=== PATIENT | female | born 1960 | race Caucasian/White ===

== ENCOUNTER → 2019-07-22 12:50 | Outpatient (CLI) | payer BC, SELFPAY ==
--- NOTE | ~2019-07-22 | XR_ITS ---
EXAMINATION: XR chest 2V EXAM DATE: 07/22/2019 13:34 INDICATION: Cough for 5 days. TECHNIQUE: Frontal and lateral projections of the chest obtained and reviewed. Comparison is made to prior examination from 12/18/2018. FINDINGS: Mildly indistinct reticulation, possible mild pulmonary edema or reticulonodular airspace d isease without confluent consolidation. No pneumothorax or pleural effusion. Patient has diffuse idio pathic skeletal hyperostosis (DISH). Cardiomediastinal silhouette is normal. IMPRESSION: Some indistinct bibasilar reticulation could be mild pulmonary edema or reticulonodular pattern infectious process. No confluent consolidation. Reviewed, dictated and finalized at location B. 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 No confluent consolidation.
== END ==
PROVIDERS: PCP Internal Medicine; Visit Provider Nurse Practitioner
DX: R05 Cough (principal); R91.8 Other nonspecific abnormal finding of lung field
CPT/HCPCS: 71046

== ENCOUNTER → 2019-08-07 13:27 | Outpatient (CLI) | payer BC, SELFPAY ==
--- NOTE | ~2019-08-07 | XR_ITS ---
XR chest 2V DATE: 08/07/2019 13:39 INDICATION: Pneumonia TECHNIQUE: 2 views COMPARISON: 07/22/2021 view chest FINDINGS: Normal heart size. No hilar or mediastinal enlargement. No pulmonary infiltrate or consol idation, pulmonary vascular congestion or pleural effusion or pneumothorax. Diffuse osteopenia. Degenerative spurring of the thoracic spine. Old left humeral surgical neck fra cture deformity. IMPRESSION: No active cardiopulmonary disease Reviewed, dictated and finalized at location A.
== END ==
PROVIDERS: PCP Internal Medicine; Visit Provider Nurse Practitioner
DX: J18.9 Pneumonia, unspecified organism (principal)
CPT/HCPCS: 71046

== ENCOUNTER 2019-12-21 09:30 | Outpatient (RCR) | payer BC, SELFPAY ==
[2019-11-02 09:59] LABS: Hematocrit 28.1 % (37.0-47.0); Hemoglobin 9.1 g/dL (12.0-15.0); Immature Platelet Fraction Pct 6.6 % (0.9-11.2); Mean Corpuscular HGB Conc 32.4 g/dl (32-36); Mean Corpuscular Volume 77.2 fl (80-100); Platelet Count Result 123 k/mm3 (150-375); Red Blood Count 3.64 M/mm3 (4.2-5.4); Red Cell Distribution Width 21.2 % (11.5-14.5); White Blood Count 9.3 K/mm3 (4.5-10.0)
[2019-11-02 10:03] LABS: Alanine Aminotransferase 94 U/L (4-35); Albumin Level 3.4 g/dL (3.5-5.1); Alkaline Phosphatase 97 U/L (38-126); Aspartate Amino Transferase 33 U/L (14-36); Bilirubin,Total 0.9 mg/dL (0.2-1.3); Blood Urea Nitrogen 23 mg/dL (7-17); Calcium 8.3 mg/dL (8.4-10.2); Carbon Dioxide 24 mmol/L (22-30); Chloride 108 mmol/L (98-107); Estimated Glomerular Filt Rate 31; Glucose 216 mg/dL (65-105); Magnesium 1.8 mg/dL (1.6-2.3); Phosphorus 3.2 mg/dL (2.5-4.5); Potassium 4.1 mmol/L (3.4-5.0); Sodium 137 mmol/L (137-145)
[2019-11-04 20:35] LABS: Tacrolimus Prograf 6.1 mcg/L
[2019-11-05 05:02] LABS: GGT 98 U/L (3-65)
[2019-11-05 10:05] LABS: Hematocrit 37.1 % (37.0-47.0); Hemoglobin 11.9 g/dL (12.0-15.0); Mean Corpuscular HGB Conc 32.1 g/dl (32-36); Mean Corpuscular Hemoglobin 23.9 pg (26-34); Mean Corpuscular Volume 74.5 fl (80-100); Platelet Count Result 151 k/mm3 (150-375); Red Blood Count 4.98 M/mm3 (4.2-5.4)
[2019-11-05 10:13] LABS: Alanine Aminotransferase 71 U/L (4-35); Albumin Level 3.5 g/dL (3.5-5.1); Alkaline Phosphatase 111 U/L (38-126); Aspartate Amino Transferase 30 U/L (14-36); Bilirubin,Total 0.7 mg/dL (0.2-1.3); Blood Urea Nitrogen 25 mg/dL (7-17); Calcium 8.7 mg/dL (8.4-10.2); Carbon Dioxide 21 mmol/L (22-30); Chloride 105 mmol/L (98-107); Estimated Glomerular Filt Rate 38; Glucose 266 mg/dL (65-105); Magnesium 1.7 mg/dL (1.6-2.3); Phosphorus 3.3 mg/dL (2.5-4.5); Potassium 4.3 mmol/L (3.4-5.0); Sodium 135 mmol/L (137-145)
[2019-11-09 03:54] LABS: GGT 85 U/L (3-65)
[2019-11-09 13:34] LABS: Alanine Aminotransferase 44 U/L (4-35); Albumin Level 3.6 g/dL (3.5-5.1); Alkaline Phosphatase 109 U/L (38-126); Aspartate Amino Transferase 25 U/L (14-36); Bilirubin,Total 0.6 mg/dL (0.2-1.3); Blood Urea Nitrogen 33 mg/dL (7-17); Calcium 8.6 mg/dL (8.4-10.2); Carbon Dioxide 18 mmol/L (22-30); Chloride 107 mmol/L (98-107); Estimated Glomerular Filt Rate 31; Glucose 242 mg/dL (65-105); Magnesium 1.8 mg/dL (1.6-2.3); Phosphorus 3.5 mg/dL (2.5-4.5); Potassium 4.3 mmol/L (3.4-5.0); Sodium 136 mmol/L (137-145)
[2019-11-09 13:41] LABS: Hematocrit 29.6 % (37.0-47.0); Hemoglobin 9.3 g/dL (12.0-15.0); Immature Platelet Fraction Pct 4.3 % (0.9-11.2); Mean Corpuscular HGB Conc 31.4 g/dl (32-36); Mean Corpuscular Hemoglobin 23.7 pg (26-34); Mean Corpuscular Volume 75.5 fl (80-100); Mean Platelet Volume 11.9 fl (7.4-10.4); Platelet Count Result 192 k/mm3 (150-375); Red Blood Count 3.92 M/mm3 (4.2-5.4); Red Cell Distribution Width 19.8 % (11.5-14.5); White Blood Count 7.3 K/mm3 (4.5-10.0)
[2019-11-09 23:11] LABS: Tacrolimus Prograf 7.8 mcg/L
[2019-11-11 19:08] LABS: GGT 79 U/L (3-65)
[2019-11-12 10:29] LABS: Hematocrit 29.1 % (37.0-47.0); Hemoglobin 9.4 g/dL (12.0-15.0); Mean Corpuscular HGB Conc 32.3 g/dl (32-36); Mean Corpuscular Hemoglobin 23.6 pg (26-34); Mean Corpuscular Volume 72.9 fl (80-100); Mean Platelet Volume 11.5 fl (7.4-10.4); Platelet Count Result 210 k/mm3 (150-375); Red Blood Count 3.99 M/mm3 (4.2-5.4); White Blood Count 6.8 K/mm3 (4.5-10.0)
[2019-11-12 10:51] LABS: Alanine Aminotransferase 37 U/L (4-35); Albumin Level 3.7 g/dL (3.5-5.1); Alkaline Phosphatase 107 U/L (38-126); Aspartate Amino Transferase 25 U/L (14-36); Bilirubin,Total 0.5 mg/dL (0.2-1.3); Blood Urea Nitrogen 34 mg/dL (7-17); Calcium 8.9 mg/dL (8.4-10.2); Carbon Dioxide 19 mmol/L (22-30); Chloride 108 mmol/L (98-107); Estimated Glomerular Filt Rate 33; Glucose 233 mg/dL (65-105); Magnesium 1.7 mg/dL (1.6-2.3); Phosphorus 4.1 mg/dL (2.5-4.5); Potassium 4.8 mmol/L (3.4-5.0); Sodium 136 mmol/L (137-145)
[2019-11-14 22:56] LABS: Tacrolimus Prograf 11.5 mcg/L
[2019-11-15 05:52] LABS: GGT 65 U/L (3-65)
[2019-11-16 10:05] LABS: Hematocrit 30.7 % (37.0-47.0); Hemoglobin 9.8 g/dL (12.0-15.0); Mean Corpuscular HGB Conc 31.9 g/dl (32-36); Mean Corpuscular Hemoglobin 23.1 pg (26-34); Mean Corpuscular Volume 72.2 fl (80-100); Mean Platelet Volume 10.9 fl (7.4-10.4); Platelet Count Result 225 k/mm3 (150-375); Red Blood Count 4.25 M/mm3 (4.2-5.4); Red Cell Distribution Width 18.5 % (11.5-14.5); White Blood Count 7.8 K/mm3 (4.5-10.0)
[2019-11-16 10:28] LABS: Alanine Aminotransferase 31 U/L (4-35); Alkaline Phosphatase 121 U/L (38-126); Aspartate Amino Transferase 21 U/L (14-36); Bilirubin,Total 0.4 mg/dL (0.2-1.3); Blood Urea Nitrogen 41 mg/dL (7-17); Calcium 9.3 mg/dL (8.4-10.2); Carbon Dioxide 18 mmol/L (22-30); Chloride 106 mmol/L (98-107); Estimated Glomerular Filt Rate 27; Glucose 265 mg/dL (65-105); Magnesium 1.8 mg/dL (1.6-2.3); Phosphorus 4.2 mg/dL (2.5-4.5); Potassium 4.9 mmol/L (3.4-5.0); Sodium 136 mmol/L (137-145)
[2019-11-18 19:02] LABS: Tacrolimus Prograf 11.2 mcg/L
[2019-11-19 06:12] LABS: GGT 60 U/L (3-65)
[2019-11-19 10:56] LABS: Hemoglobin 10.3 g/dL (12.0-15.0); Mean Corpuscular HGB Conc 32.2 g/dl (32-36); Mean Corpuscular Hemoglobin 22.9 pg (26-34); Mean Corpuscular Volume 71.1 fl (80-100); Mean Platelet Volume 11.4 fl (7.4-10.4); Platelet Count Result 228 k/mm3 (150-375); White Blood Count 7.6 K/mm3 (4.5-10.0)
[2019-11-19 13:03] LABS: Alanine Aminotransferase 29 U/L (4-35); Albumin Level 4.1 g/dL (3.5-5.1); Alkaline Phosphatase 110 U/L (38-126); Aspartate Amino Transferase 21 U/L (14-36); Bilirubin,Total 0.4 mg/dL (0.2-1.3); Blood Urea Nitrogen 49 mg/dL (7-17); Calcium 9.3 mg/dL (8.4-10.2); Carbon Dioxide 19 mmol/L (22-30); Chloride 107 mmol/L (98-107); Estimated Glomerular Filt Rate 24; Glucose 214 mg/dL (65-105); Magnesium 1.8 mg/dL (1.6-2.3); Phosphorus 5.3 mg/dL (2.5-4.5); Potassium 4.5 mmol/L (3.4-5.0); Sodium 137 mmol/L (137-145)
[2019-11-22 12:58] LABS: GGT 55 U/L (3-65)
[2019-11-23 07:54] LABS: Tacrolimus Prograf 9.7 mcg/L
[2019-11-23 10:21] LABS: Hematocrit 29.6 % (37.0-47.0); Hemoglobin 9.4 g/dL (12.0-15.0); Mean Corpuscular HGB Conc 31.8 g/dl (32-36); Mean Corpuscular Hemoglobin 22.7 pg (26-34); Mean Corpuscular Volume 71.3 fl (80-100); Mean Platelet Volume 10.5 fl (7.4-10.4); Platelet Count Result 170 k/mm3 (150-375); Red Blood Count 4.15 M/mm3 (4.2-5.4); Red Cell Distribution Width 17.3 % (11.5-14.5); White Blood Count 6.7 K/mm3 (4.5-10.0)
[2019-11-23 10:42] LABS: Alanine Aminotransferase 23 U/L (4-35); Alkaline Phosphatase 103 U/L (38-126); Aspartate Amino Transferase 24 U/L (14-36); Bilirubin,Total 0.5 mg/dL (0.2-1.3); Blood Urea Nitrogen 30 mg/dL (7-17); Calcium 9.3 mg/dL (8.4-10.2); Carbon Dioxide 16 mmol/L (22-30); Chloride 110 mmol/L (98-107); Estimated Glomerular Filt Rate 38; Glucose 175 mg/dL (65-105); Magnesium 1.8 mg/dL (1.6-2.3); Phosphorus 4.5 mg/dL (2.5-4.5); Potassium 4.9 mmol/L (3.4-5.0); Sodium 134 mmol/L (137-145)
[2019-11-23 11:39] LABS: Hepatitis B Surface Antigen Negative (Negative)
[2019-11-23 11:56] LABS: HIV 1/2 Ab P24 Ag Result Negative (Negative); Hepatitis B Surface Anti Res Negative; Hepatitis C Virus Antibody Negative (Negative)
[2019-11-25 15:58] LABS: Tacrolimus Prograf 6.9 mcg/L
[2019-11-25 20:38] LABS: GGT 42 U/L (3-65)
[2019-11-26 10:28] LABS: Hematocrit 30.6 % (37.0-47.0); Hemoglobin 9.7 g/dL (12.0-15.0); Mean Corpuscular HGB Conc 31.7 g/dl (32-36); Mean Corpuscular Hemoglobin 22.7 pg (26-34); Mean Corpuscular Volume 71.5 fl (80-100); Mean Platelet Volume 11.3 fl (7.4-10.4); Platelet Count Result 174 k/mm3 (150-375); Red Blood Count 4.28 M/mm3 (4.2-5.4); Red Cell Distribution Width 17.2 % (11.5-14.5); White Blood Count 6.6 K/mm3 (4.5-10.0)
[2019-11-26 10:30] LABS: Alanine Aminotransferase 21 U/L (4-35); Alkaline Phosphatase 105 U/L (38-126); Aspartate Amino Transferase 18 U/L (14-36); Bilirubin,Total 0.4 mg/dL (0.2-1.3); Blood Urea Nitrogen 26 mg/dL (7-17); Calcium 9.3 mg/dL (8.4-10.2); Carbon Dioxide 16 mmol/L (22-30); Chloride 111 mmol/L (98-107); Estimated Glomerular Filt Rate 38; Glucose 193 mg/dL (65-105); Magnesium 1.9 mg/dL (1.6-2.3); Phosphorus 4.3 mg/dL (2.5-4.5); Potassium 5.1 mmol/L (3.4-5.0); Sodium 137 mmol/L (137-145)
[2019-11-30 05:16] LABS: GGT 38 U/L (3-65)
[2019-11-30 05:33] LABS: Tacrolimus Prograf 5.8 mcg/L
[2019-11-30 09:58] LABS: Hematocrit 28.1 % (37.0-47.0); Mean Corpuscular Hemoglobin 22.3 pg (26-34); Mean Corpuscular Volume 69.7 fl (80-100); Mean Platelet Volume 10.6 fl (7.4-10.4); Platelet Count Result 153 k/mm3 (150-375); Red Blood Count 4.03 M/mm3 (4.2-5.4); Red Cell Distribution Width 16.7 % (11.5-14.5); White Blood Count 6.4 K/mm3 (4.5-10.0)
[2019-11-30 10:10] LABS: Alanine Aminotransferase 25 U/L (4-35); Albumin Level 3.9 g/dL (3.5-5.1); Alkaline Phosphatase 105 U/L (38-126); Aspartate Amino Transferase 24 U/L (14-36); Bilirubin,Total 0.5 mg/dL (0.2-1.3); Blood Urea Nitrogen 21 mg/dL (7-17); Calcium 9.4 mg/dL (8.4-10.2); Carbon Dioxide 19 mmol/L (22-30); Chloride 108 mmol/L (98-107); Estimated Glomerular Filt Rate 42; Glucose 217 mg/dL (65-105); Magnesium 1.7 mg/dL (1.6-2.3); Phosphorus 4.4 mg/dL (2.5-4.5); Potassium 4.8 mmol/L (3.4-5.0); Sodium 135 mmol/L (137-145)
[2019-11-30 17:30] LABS: Hepatitis B DNA PCR <1.00 Log IU/mL; Hepatitis B DNA PCR <10 IU/mL
[2019-12-02 18:50] LABS: GGT 34 U/L (3-65)
[2019-12-03 09:30] LABS: Tacrolimus Prograf 5.2 mcg/L
[2019-12-03 10:48] LABS: Hematocrit 29.6 % (37.0-47.0); Mean Corpuscular HGB Conc 30.4 g/dl (32-36); Mean Corpuscular Hemoglobin 21.9 pg (26-34); Platelet Count Result 140 k/mm3 (150-375); Red Blood Count 4.11 M/mm3 (4.2-5.4); Red Cell Distribution Width 17.1 % (11.5-14.5); White Blood Count 5.2 K/mm3 (4.5-10.0)
[2019-12-03 11:18] LABS: Alanine Aminotransferase 26 U/L (4-35); Albumin Level 4.1 g/dL (3.5-5.1); Alkaline Phosphatase 98 U/L (38-126); Aspartate Amino Transferase 22 U/L (14-36); Bilirubin,Total 0.4 mg/dL (0.2-1.3); Blood Urea Nitrogen 23 mg/dL (7-17); Calcium 9.2 mg/dL (8.4-10.2); Carbon Dioxide 20 mmol/L (22-30); Chloride 107 mmol/L (98-107); Estimated Glomerular Filt Rate 35; Glucose 192 mg/dL (65-105); Magnesium 1.9 mg/dL (1.6-2.3); Phosphorus 4.6 mg/dL (2.5-4.5); Potassium 4.8 mmol/L (3.4-5.0); Sodium 137 mmol/L (137-145)
[2019-12-07 10:47] LABS: Hematocrit 28.1 % (37.0-47.0); Hemoglobin 8.8 g/dL (12.0-15.0); Mean Corpuscular HGB Conc 31.3 g/dl (32-36); Mean Corpuscular Hemoglobin 21.7 pg (26-34); Mean Corpuscular Volume 69.2 fl (80-100); Mean Platelet Volume 10.9 fl (7.4-10.4); Platelet Count Result 181 k/mm3 (150-375); Red Blood Count 4.06 M/mm3 (4.2-5.4); Red Cell Distribution Width 16.3 % (11.5-14.5); White Blood Count 5.2 K/mm3 (4.5-10.0)
[2019-12-07 10:54] LABS: Alanine Aminotransferase 33 U/L (4-35); Albumin Level 4.3 g/dL (3.5-5.1); Alkaline Phosphatase 102 U/L (38-126); Aspartate Amino Transferase 26 U/L (14-36); Bilirubin,Total 0.5 mg/dL (0.2-1.3); Blood Urea Nitrogen 22 mg/dL (7-17); Calcium 9.5 mg/dL (8.4-10.2); Carbon Dioxide 21 mmol/L (22-30); Chloride 109 mmol/L (98-107); Estimated Glomerular Filt Rate 31; Glucose 160 mg/dL (65-105); Magnesium 1.8 mg/dL (1.6-2.3); Phosphorus 4.5 mg/dL (2.5-4.5); Potassium 4.6 mmol/L (3.4-5.0); Sodium 138 mmol/L (137-145)
[2019-12-08 04:24] LABS: GGT 36 U/L (3-65)
[2019-12-08 10:10] LABS: Tacrolimus Prograf 5.9 mcg/L
[2019-12-10 09:55] LABS: Hematocrit 27.9 % (37.0-47.0); Hemoglobin 8.7 g/dL (12.0-15.0); Mean Corpuscular HGB Conc 31.2 g/dl (32-36); Mean Corpuscular Hemoglobin 21.6 pg (26-34); Mean Corpuscular Volume 69.4 fl (80-100); Mean Platelet Volume 10.9 fl (7.4-10.4); Platelet Count Result 158 k/mm3 (150-375); Red Blood Count 4.02 M/mm3 (4.2-5.4); White Blood Count 5.2 K/mm3 (4.5-10.0)
[2019-12-10 10:08] LABS: Alanine Aminotransferase 27 U/L (4-35); Albumin Level 4.2 g/dL (3.5-5.1); Alkaline Phosphatase 96 U/L (38-126); Aspartate Amino Transferase 25 U/L (14-36); Bilirubin,Total 0.4 mg/dL (0.2-1.3); Blood Urea Nitrogen 21 mg/dL (7-17); Calcium 9.5 mg/dL (8.4-10.2); Carbon Dioxide 23 mmol/L (22-30); Chloride 107 mmol/L (98-107); Estimated Glomerular Filt Rate 33; Glucose 174 mg/dL (65-105); Magnesium 1.8 mg/dL (1.6-2.3); Phosphorus 4.9 mg/dL (2.5-4.5); Potassium 4.7 mmol/L (3.4-5.0); Sodium 137 mmol/L (137-145)
[2019-12-10 16:37] LABS: Tacrolimus Prograf 6.8 mcg/L
[2019-12-11 19:59] LABS: GGT 33 U/L (3-65)
[2019-12-14 06:54] LABS: Tacrolimus Prograf 5.5 mcg/L
[2019-12-14 11:05] LABS: Hematocrit 27.5 % (37.0-47.0); Hemoglobin 8.6 g/dL (12.0-15.0); Mean Corpuscular HGB Conc 31.3 g/dl (32-36); Mean Corpuscular Hemoglobin 21.6 pg (26-34); Mean Corpuscular Volume 69.1 fl (80-100); Mean Platelet Volume 11.4 fl (7.4-10.4); Platelet Count Result 159 k/mm3 (150-375); Red Blood Count 3.98 M/mm3 (4.2-5.4); Red Cell Distribution Width 15.7 % (11.5-14.5); White Blood Count 5.2 K/mm3 (4.5-10.0)
[2019-12-14 11:11] LABS: Alanine Aminotransferase 23 U/L (4-35); Albumin Level 4.1 g/dL (3.5-5.1); Alkaline Phosphatase 87 U/L (38-126); Aspartate Amino Transferase 18 U/L (14-36); Bilirubin,Total 0.4 mg/dL (0.2-1.3); Blood Urea Nitrogen 21 mg/dL (7-17); Calcium 9.2 mg/dL (8.4-10.2); Carbon Dioxide 22 mmol/L (22-30); Chloride 106 mmol/L (98-107); Estimated Glomerular Filt Rate 33; Glucose 189 mg/dL (65-105); Magnesium 1.7 mg/dL (1.6-2.3); Phosphorus 4.3 mg/dL (2.5-4.5); Potassium 4.4 mmol/L (3.4-5.0); Sodium 139 mmol/L (137-145)
[2019-12-15 22:55] LABS: GGT 28 U/L (3-65)
[2019-12-17 10:30] LABS: Hematocrit 27.8 % (37.0-47.0); Hemoglobin 8.7 g/dL (12.0-15.0); Mean Corpuscular HGB Conc 31.3 g/dl (32-36); Mean Corpuscular Hemoglobin 21.2 pg (26-34); Mean Corpuscular Volume 67.6 fl (80-100); Mean Platelet Volume 11.1 fl (7.4-10.4); Platelet Count Result 158 k/mm3 (150-375); Red Blood Count 4.11 M/mm3 (4.2-5.4); Red Cell Distribution Width 15.3 % (11.5-14.5); White Blood Count 5.3 K/mm3 (4.5-10.0)
[2019-12-17 10:58] LABS: Alanine Aminotransferase 23 U/L (4-35); Albumin Level 4.1 g/dL (3.5-5.1); Alkaline Phosphatase 82 U/L (38-126); Anion Gap 14.3 mmol/L (7-16); Aspartate Amino Transferase 21 U/L (14-36); Bilirubin,Total 0.5 mg/dL (0.2-1.3); Blood Urea Nitrogen 21 mg/dL (7-17); Calcium 9.2 mg/dL (8.4-10.2); Carbon Dioxide 21 mmol/L (22-30); Chloride 108 mmol/L (98-107); Estimated Glomerular Filt Rate 38; Glucose 167 mg/dL (65-105); Magnesium 1.7 mg/dL (1.6-2.3); Phosphorus 4.7 mg/dL (2.5-4.5); Potassium 4.3 mmol/L (3.4-5.0); Sodium 139 mmol/L (137-145)
[2019-12-17 12:53] LABS: GGT 25 U/L (3-65)
[2019-12-17 18:20] LABS: Tacrolimus Prograf 5.3 mcg/L
[2019-12-20 10:11] LABS: Tacrolimus Prograf 4.9 mcg/L
[2019-12-21 10:48] LABS: Hematocrit 27.1 % (37.0-47.0); Hemoglobin 8.5 g/dL (12.0-15.0); Mean Corpuscular HGB Conc 31.4 g/dl (32-36); Mean Corpuscular Hemoglobin 21.5 pg (26-34); Mean Corpuscular Volume 68.4 fl (80-100); Platelet Count Result 154 k/mm3 (150-375); Red Blood Count 3.96 M/mm3 (4.2-5.4); Red Cell Distribution Width 15.2 % (11.5-14.5); White Blood Count 5.4 K/mm3 (4.5-10.0)
[2019-12-21 10:53] LABS: Alanine Aminotransferase 21 U/L (4-35); Alkaline Phosphatase 75 U/L (38-126); Anion Gap 12.6 mmol/L (7-16); Aspartate Amino Transferase 20 U/L (14-36); Bilirubin,Total 0.4 mg/dL (0.2-1.3); Blood Urea Nitrogen 18 mg/dL (7-17); Calcium 9.3 mg/dL (8.4-10.2); Carbon Dioxide 21 mmol/L (22-30); Chloride 109 mmol/L (98-107); Estimated Glomerular Filt Rate 35; Glucose 149 mg/dL (65-105); Magnesium 1.7 mg/dL (1.6-2.3); Phosphorus 5.3 mg/dL (2.5-4.5); Potassium 4.6 mmol/L (3.4-5.0); Sodium 138 mmol/L (137-145)
[2019-12-21 17:53] LABS: GGT 21 U/L (3-65)
[2019-12-24 15:46] LABS: Tacrolimus Prograf 6.2 mcg/L
[2019-12-25 05:10] LABS: GGT 18 U/L (3-65)
== END 2020-01-31 23:59 | disposition home or self-care (01) ==
LOC: HOME HLTH 09:30
PROVIDERS: PCP Internal Medicine; Visit Provider Internal Medicine
DX: Z48.01 Encounter for change or removal of surgical wound dressing (principal); Z94.4 Liver transplant status; Z11.4 Encounter for screening for human immunodeficiency virus [HIV]
CPT/HCPCS: 36415; 80048; 80053; 80197; 82977; 83735; 84100; 85027; 85055; 86703; 86706; 86803; 87340; 87517; G0432

== ENCOUNTER → 2020-01-15 09:12 | Outpatient (CLI) | payer BC, SELFPAY ==
--- NOTE | ~2020-01-15 | XR_ITS ---
EXAMINATION: XR chest 2V DATE: 01/15/2020 09:25 INDICATION: Shortness of breath and cough TECHNIQUE: Frontal and lateral views of the chest are obtained COMPARISON: 08/07/2019 FINDINGS: The lungs are free of acute opacities. There is no pleural effusion or pneumothorax. The ca rdiomediastinal silhouette is normal. There are bridging osteophytes at multiple levels in the spine, consistent with diffuse idiopathic skeletal hyperostosis (DISH). IMPRESSION: 1. No acute cardiopulmonary abnormality. Reviewed, dictated and finalized at location A.
== END ==
PROVIDERS: PCP Internal Medicine; Visit Provider Clinical Nurse Specialist
DX: R06.02 Shortness of breath (principal); R05 Cough
CPT/HCPCS: 71046

== ENCOUNTER 2020-04-30 19:02 | Emergency (ER) | payer BC, SELFPAY ==
--- NOTE | ~2020-04-30 | CT_ITS ---
EXAMINATION: CT brain wo con DATE: 04/30/2020 20:33 INDICATION: Severe headache. Blurred vision. TECHNIQUE: Computed tomography (CT) of the head was performed without intravenous contrast. Sagittal and coronal reconstructions were performed. The mA was adjusted according to patient size. Iterative reconstruction technique was employed. The dose-length product was 605.33 mGy-cm. COMPARISON: head CT dated 04/03/19 FINDINGS: No acute intracranial hemorrhage, acute infarction or abnormal extra axial fluid collection. Symmetri c prominence of the sulci and subarachnoid spaces overlying the convexities consistent with mild age- appropriate diffuse cerebral volume loss. Ventricles are normal and symmetric. No mass/mass effect. T he orbits, paranasal sinuses and mastoid air cells are normal. IMPRESSION: 1. Normal aging brain. No acute intracranial process. Reviewed, dictated and finalized at location A. 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
[2020-04-30 19:06] VITALS: BP 219/81; PULSE 76; RESP 16; TEMP 36.3; O2SAT 98
--- NOTE | 2020-04-30 19:51 | ED.RECABL ---
HPI - Recheck/Abnormal Lab/Rx General Chief Complaint: Recheck/Abnormal Lab/Rx Stated Complaint: Liver transplant, High blood pressue Time Seen by Provider: 04/30/20 19:40 History of Present Illness HPI narrative: 59 yo female w/ h/o liver transplant presents to the ED for headache and hypertension. She reports that she required a transfusion of 2 units of RBCs yesterday due to anemia. Following the transfusion she began having a severe left sided headache. This was associated with blurry vision in the left eye. Additionally she notes persistently elevated BP above 200 systolic. She reports that this is abnormal for her. She has also developed swelling in the BLE. Related Data Home Medications Medication Instructions Recorded Confirmed lutein 20 mg capsule 20 mg PO DAILY 04/08/19 omeprazole 40 mg capsule,delayed 40 mg PO DAILY 04/08/19 release cetirizine 10 mg capsule 10 mg PO DAILY 06/23/19 insulin aspart U-100 100 unit/mL 1 sliding scale dose SUB-Q 06/23/19 subcutaneous solution USEASDIRECTD aspirin 81 mg tablet,delayed 81 mg PO DAILY 01/14/20 release atorvastatin 40 mg tablet 40 mg PO DAILY 01/14/20 carvedilol 6.25 mg tablet 25 mg PO Q12H tablet 01/14/20 insulin glargine 100 unit/mL (3 10 unit SUB-Q DAILY 01/14/20 mL) subcutaneous pen mycophenolate sodium 360 mg 720 mg PO BID 01/14/20 tablet,delayed release pantoprazole 40 mg tablet,delayed 40 mg PO QAM 01/14/20 release sulfamethoxazole 800 1 tablet PO DAILY tablet 01/14/20 mg-trimethoprim 160 mg tablet tacrolimus 1 mg capsule 1 mg PO Q12H 01/14/20 valganciclovir 450 mg tablet 450 mg PO DAILY tablet 01/14/20 Allergies Allergy/AdvReac Type Severity Reaction Status Date / Time adhesive tape Allergy Mild rash Verified 04/30/20 19:10 clindamycin Allergy Unknown Rash Verified 04/30/20 19:10 Review of Systems Constitutional: Constitutional: Reports chills and Denies fever(s) Eyes: Eyes: Reports change in vision and Reports photophobia ENT: Denies sore throat Cardiovascular: Cardiovascular: Denies chest pain Gastrointestinal: Gastrointestinal: Reports bloating and Reports nausea Neurologic: Denies confusion and Reports headache(s) [facility] Past Medical History Medical History Abnormal uterine bleeding Allergies Anemia Broken arm Left humerus bone March 2019 Cirrhosis DM (diabetes mellitus) Encounter for blood transfusion 2019 Endometriosis Fracture of proximal end of left humerus (04/04/19) Gastritis GERD (gastroesophageal reflux disease) GI bleed Heart murmur History of pleurisy Hypertension Liver transplant planned October 24, 2019 Olecranon bursitis, left elbow Osteoporosis Pancreatitis Pneumonia UTI (urinary tract infection) Vertigo Surgical History Surgical History History of cholecystectomy Previous section x2 Family History Family History Mother Family history of malignant neoplasm of stomach Anemia Macular degeneration Father Bone tumor Liver cirrhosis Social History Social History Smoking status: Never smoker Alcohol intake: never Gender identity (if verbalized by the patient): Female Exam Const: General: no acute distress and alert Nutritional Appearance: obese Orientation/consciousness: patient oriented x3 HENMT: Head: normal to inspection Eyes: Conjunctivae: conjunctivae normal Pupils: Equal, round and reactive pupils present EOM: EOMs intact bilaterally Neck: Neck: normal visual inspection Resp: Effort & Inspection: normal respiratory effort Auscultation: clear to auscultation bilaterally Cardio: Rate: regular rate Rhythm: regular rhythm GI: Inspection: distended GI Palp: No Tenderness to palpation present (GI) Skin: General sk
[2020-04-30] MEDS: diphenhydrAMINE HCl INJ 50 MG/ML VIAL 25 MG IV PUSH (21:14)
[2020-04-30] MEDS: METOCLOPRAMIDE HCL INJ 10 MG/2 ML VIAL IV PUSH (21:15)
[2020-04-30 21:18] LABS: Basophils Percent Auto 0.2 % (0.2-1.2); Eosinophils Absolute Auto 0.1 K/mm3 (0-0.3); Eosinophils Percent Auto 1.3 % (0-4.4); Hematocrit 34.5 % (37.0-47.0); Hemoglobin 10.8 g/dL (12.0-15.0); Immature Granulocyte Absolute 0.04 K/mm3 (0.00-0.031); Immature Granulocyte Percent A 0.6 % (0-0.5); Immature Platelet Fraction Pct 6.5 % (0.9-11.2); Lymphocytes Absolute Auto 0.62 K/mm3 (0.9-3.2); Mean Corpuscular HGB Conc 31.3 g/dl (32-36); Mean Corpuscular Hemoglobin 20.7 pg (26-34); Mean Corpuscular Volume 66.1 fl (80-100); Monocytes Absolute Auto 0.3 K/mm3 (0.1-0.6); Monocytes Percent Auto 4.9 % (2.6-8.5); Neutrophils Absolute Auto 5.1 K/mm3 (1.3-6.7); Platelet Count Result 89 k/mm3 (150-375); Red Blood Count 5.22 M/mm3 (4.2-5.4); Red Cell Distribution Width 23.9 % (11.5-14.5); White Blood Count 6.2 K/mm3 (4.5-10.0)
[2020-04-30] MEDS: KETOROLAC 30 MG/ML VIAL (*BKC) IV PUSH (21:18)
[2020-04-30 21:27] LABS: Prothrombin Time 13.5 Seconds (11.1-14.7)
[2020-04-30 21:28] LABS: Alanine Aminotransferase 15 U/L (4-35); Albumin Level 3.8 g/dL (3.5-5.1); Alkaline Phosphatase 94 U/L (38-126); Anion Gap 6 mmol/L (8-16); Aspartate Amino Transferase 17 U/L (14-36); Bilirubin,Total 0.6 mg/dL (0.2-1.3); Blood Urea Nitrogen 26 mg/dL (7-17); Calcium 9.3 mg/dL (8.4-10.2); Carbon Dioxide 19 mmol/L (22-30); Chloride 115 mmol/L (98-107); Estimated CRCL calculation 28 ml/min; Estimated Glomerular Filt Rate 23; Glucose 184 mg/dL (65-105); Potassium 4.9 mmol/L (3.4-5.0); Sodium 140 mmol/L (137-145)
[2020-04-30 22:02] VITALS: BP 182/78
[2020-04-30] MEDS: FUROSEMIDE INJ 40 MG/4 ML VIAL IV PUSH (22:09)
[2020-04-30 23:13] VITALS: BP 182/92
[2020-05-01 00:15] VITALS: BP 184/88
[2020-05-01 00:29] VITALS: BP 184/88; PULSE 71; RESP 20; O2SAT 100
== END 2020-05-01 00:35 | disposition home or self-care (01) ==
PROVIDERS: Emergency Provider Emergency Medicine; PCP Internal Medicine
DX: R51.9 Headache, unspecified (principal); I10 Essential (primary) hypertension; R60.9 Edema, unspecified; Z94.4 Liver transplant status; Z79.82 Long term (current) use of aspirin; Z79.4 Long term (current) use of insulin; D64.9 Anemia, unspecified; E11.9 Type 2 diabetes mellitus without complications; N80.9 Endometriosis, unspecified; K21.9 Gastro-esophageal reflux disease without esophagitis; Z87.440 Personal history of urinary (tract) infections; M81.0 Age-related osteoporosis without current pathological fracture; K74.60 Unspecified cirrhosis of liver
CPT/HCPCS: 36415; 70450; 80053; 85025; 85055; 85610; 85730; 96374; 96375; 99284; J1200; J1885; J1940; J2765

== ENCOUNTER 2020-05-09 07:02 | Outpatient (NON) | payer BC, SELFPAY ==
[2020-05-09 18:34] LABS: SARS-CoV-2 RNA PCR Negative
== END 2020-05-09 07:03 ==
LOC: ANHCOVIDDT 07:03
DX: Z01.812 Encounter for preprocedural laboratory examination (principal); Z20.828 Contact with and (suspected) exposure to other viral communicable diseases
CPT/HCPCS: 87635; C9803; U0003

== ENCOUNTER → 2020-06-22 11:22 | Outpatient (CLI) | payer BC, SELFPAY ==
--- NOTE | ~2020-06-22 | CT_ITS ---
EXAMINATION: CT abdomen pelvis wo con DATE: 06/22/2020 12:14 INDICATION: Microscopic hematuria. History of liver transplant in September 2019 TECHNIQUE: Computed tomography (CT) of the abdomen and pelvis was performed without intravenous contr ast. Automated exposure control and iterative reconstruction technique were employed. Exam dose: 967 .81 mGy-cm total exam DLP. COMPARISON: None. FINDINGS: The lung bases are clear of infiltrate or consolidation. Normal heart size. Trace pericardial fluid. Status post liver transplant by clinical history. There is air in the intrahepatic and extrahepatic b ile ducts. No pancreatic mass lesion or calcification. The spleen measures up to 12.5 cm length, 14 c m being upper limits of normal. Normal morphology of the adrenal glands. No renal mass lesion is evident on this limited noncontrast examination. No urinary tract calculus or hydroureteronephrosis. There is mild to moderate thickening of the urinary bladder wall. The urinary bladder, uterus and adn exal areas are otherwise unremarkable. Normal caliber of the abdominal aorta. No intraperitoneal or retroperitoneal or pelvic mass lesion or adenopathy or ascites. No bowel obstruction, bowel wall thickening, pneumatosis or intraperitoneal free air. Small fat-containing umbilical hernia. Diffuse idiopathic skeletal hyperostosis of the thoracic spine. No suspicious osteolytic or osteoblastic lesions are noted. IMPRESSION: History of liver transplant Borderline splenic size Nonspecific mild to moderate thickening of the urinary bladder wall Reviewed, dictated and finalized at Location A. Reviewed, dictated and finalized at location A. RECLAIMER
--- NOTE | ~2020-06-22 | XR_ITS ---
XR abdomen/kub 1V DATE: 06/22/2020 12:13 INDICATION: Microscopic hematuria TECHNIQUE: AP projection, 2 views COMPARISON: 06/22/[address] abdomen pelvis FINDINGS: Surgical clips overlie the right upper quadrant, consistent with history of liver transplan t. Radiopaque metallic density overlying the medial left midabdomen is noted in the gastric lumen on the 06/22/2020 CT abdomen pelvis examination. The psoas shadows are intact. Splenomegaly. No visceromegaly is evident otherwise. No urinary tract calcifications are noted. Nonspecific bowel gas pattern without evidence of obstruction. IMPRESSION: Status post liver transplant Splenomegaly Nonspecific abdomen Reviewed, dictated and finalized at Location A. Reviewed, dictated and finalized at location A. 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
[2020-06-22 11:46] LABS: Estimated Glomerular Filt Rate 16
== END ==
PROVIDERS: PCP Internal Medicine; Visit Provider Urology
DX: R31.29 Other microscopic hematuria (principal); R16.1 Splenomegaly, not elsewhere classified; Z94.4 Liver transplant status
CPT/HCPCS: 74018; 74176

== ENCOUNTER 2020-08-01 16:50 | Outpatient (CLI) | payer BC, SELFPAY | END 2020-08-01 16:51 | disposition home or self-care (01) | LOC: ANHCOVIDVC 16:50 | PROVIDERS: PCP Internal Medicine | DX: Z23 Encounter for immunization (principal) | CPT/HCPCS: 0001A; 91300 ==

== ENCOUNTER 2020-08-22 16:47 | Outpatient (CLI) | payer BC, SELFPAY | END 2020-08-22 16:48 | disposition home or self-care (01) | LOC: ANHCOVIDVC 16:47 | PROVIDERS: PCP Internal Medicine | DX: Z23 Encounter for immunization (principal) | CPT/HCPCS: 0002A; 91300 ==

== ENCOUNTER 2020-10-25 12:31 | Emergency (ER) | payer BC, SELFPAY ==
--- NOTE | ~2020-10-25 | XR_ITS ---
EXAMINATION: XR chest 2V EXAM DATE: 10/25/2020 13:59 INDICATION: Congestion non smoker hx liver transplant. TECHNIQUE: Frontal and lateral projections of the chest obtained and reviewed. Comparison is made to prior examination from 01/15/2020. FINDINGS: The lungs are clear. There are no pleural effusions. The cardiomediastinal silhouette is within normal limits. There is no pneumothorax suspected. Patient has diffuse idiopathic skeletal h yperostosis (DISH). There is no significant interval change. IMPRESSION: No acute cardiopulmonary findings. Reviewed, dictated and finalized at location B.
[2020-10-25 12:42] VITALS: BP 155/73; PULSE 97; RESP 16; TEMP 36.8; O2SAT 99
--- NOTE | 2020-10-25 14:32 | ED.URI ---
HPI - URI/Sore Throat General Chief Complaint: Upper Respiratory Infection Stated Complaint: sinus infection Time Seen by Provider: 10/25/20 14:01 Source: patient and RN notes reviewed Mode of arrival: ambulatory Limitations: no limitations History of Present Illness HPI Narrative: Patient presents today with a 1 month history of nasal congestion, sore throat, watery eyes, ear pressure. 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 She took care of her grandchild last week, who has since developed pneumonia. Patient developed a productive cough 5 days ago and is now intermittently short of breath. She has been taking Zyrtec, Flonase, Mucinex with mild relief. She is IDDM and is a liver transplant recipient. Related Data Home Medications Medication Instructions Recorded Confirmed insulin aspart U-100 100 unit/mL 1 sliding scale dose SUB-Q 06/23/19 10/25/20 subcutaneous solution USEASDIRECTD aspirin 81 mg tablet,delayed 81 mg PO DAILY 01/14/20 10/25/20 release mycophenolate sodium 360 mg 360 mg PO BID 01/14/20 10/25/20 tablet,delayed release amlodipine 10 mg tablet 10 mg PO DAILY 06/17/20 10/25/20 prednisone 20 mg tablet 5 mg PO DAILY tablet 09/12/20 10/25/20 tacrolimus 1 mg capsule, 1 mg PO Q12H 09/12/20 10/25/20 immediate-release insulin glargine [Basaglar KwikPen 12 - 16 unit SUBCUT BID 10/25/20 10/25/20 U-100 Insulin] Allergies Allergy/AdvReac Type Severity Reaction Status Date / Time adhesive tape Allergy Mild rash Verified 10/25/20 13:48 clindamycin Allergy Unknown Rash Verified 10/25/20 13:48 Sulfa (Sulfonamide AdvReac Mild Hives Verified 10/25/20 13:48 Antibiotics) Review of Systems Review of Systems: Narrative: CONSTITUTIONAL: Denies body aches, fever, chills, or sweats. EYES: Denies visual changes, redness, or discharge.+ Watery eyes ENT: Congestion, sore throat, ear pressure CARDIOVASCULAR: Denies chest pain, palpitations, or edema. RESPIRATORY: + Cough, shortness of breath, chest tightness GASTROINTESTINAL: Denies abdominal pain, nausea, vomiting, or diarrhea. GENITOURINARY: Denies dysuria or hematuria. SKIN: Denies rash, itching, or wounds. MUSCULOSKELETAL: Denies back pain, joint pain, or myalgia. NEUROLOGIC: Denies headache, numbness, tingling, or weakness. PSYCH: Denies depression or anxiety. [facility] Past Medical History Medical History Abnormal uterine bleeding Allergies Anemia Broken arm Left humerus bone March 2019 Cirrhosis CMV (cytomegalovirus infection) DM (diabetes mellitus) Encounter for blood transfusion 2018 Endometriosis Fracture of proximal end of left humerus (04/04/19) Gastritis GERD (gastroesophageal reflux disease) GI bleed Heart murmur History of pleurisy Hypertension Liver transplant planned October 24, 2019 Olecranon bursitis, left elbow Osteoporosis Pancreatitis Pneumonia UTI (urinary tract infection) Vertigo Surgical History Surgical History History of cholecystectomy Previous section x2 Family History Family History Mother Family history of malignant neoplasm of stomach Anemia Macular degeneration Father Bone tumor Liver cirrhosis Social History Social History Smoking status: Never smoker Alcohol intake: never Gender identity (if verbalized by the patient): Female Comments At time of signature, I have reviewed and agree with nursing past medical, surgical, social and family history unless otherwise noted. Please see nursing chart for further information. There is no relevant family history pertinent to the presenting complaint Exam Narrative: Exam Narrative: GENERAL: Mildly ill-appearing, well-
== END 2020-10-25 14:38 | disposition home or self-care (01) ==
PROVIDERS: Emergency Provider Nurse Practitioner; PCP Internal Medicine
DX: J32.9 Chronic sinusitis, unspecified (principal); K74.60 Unspecified cirrhosis of liver; E11.9 Type 2 diabetes mellitus without complications; N80.9 Endometriosis, unspecified; K21.9 Gastro-esophageal reflux disease without esophagitis; R01.1 Cardiac murmur, unspecified; I10 Essential (primary) hypertension; Z94.4 Liver transplant status; M81.0 Age-related osteoporosis without current pathological fracture
CPT/HCPCS: 71046; 99213; G0463

== ENCOUNTER → 2021-06-10 10:13 | Outpatient (CLI) | payer BC, SELFPAY ==
--- NOTE | ~2021-06-10 | XR_ITS ---
EXAMINATION: XR chest 2V 06/10/2021 11:03 INDICATION: Fever. Liver transplant status. PROCEDURE: 2 view chest COMPARISON: Comparison to multiple prior studies sequentially, with oldest reviewed study dated 07/22. FINDINGS: The lungs are clear. The cardiomediastinal silhouette is within normal limits. There are no pleural effusions. There is no pneumothorax suspected. IMPRESSION: 1: NO ACUTE CARDIOPULMONARY DISEASE. Reviewed, dictated and finalized at location A. 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
== END ==
PROVIDERS: PCP Internal Medicine; Visit Provider Internal Medicine Gastroenterology
DX: R50.9 Fever, unspecified (principal); Z94.4 Liver transplant status
CPT/HCPCS: 71046

== ENCOUNTER 2021-10-26 13:27 | Outpatient (CLI) | payer BC, SELFPAY ==
--- NOTE | ~2021-10-26 | US_ITS ---
EXAMINATION: US abdomen limited DATE: 10/26/2021 14:18 INDICATION: Epigastric abdominal pain TECHNIQUE: Multiple grayscale and Doppler ultrasound images of the abdomen were obtained. COMPARISON: CT, 06/22/2020 FINDINGS: The head and body of the pancreas are normal. The pancreatic tail is obscured by bowel gas. The liver is normal with normal echogenicity and echotexture. No surface nodularity. Normal hepatope michael flow in the main portal vein. The gallbladder is surgically absent. The normal common bile duct m easures 6 mm. IMPRESSION: 1. No sonographic correlate for the patient's symptoms. Reviewed, dictated and finalized at location F.
== END 2021-10-26 13:28 | disposition home or self-care (01) ==
PROVIDERS: PCP Internal Medicine; Visit Provider Nurse Practitioner
DX: R10.11 Right upper quadrant pain (principal); R10.12 Left upper quadrant pain
CPT/HCPCS: 76705

== ENCOUNTER 2021-10-27 10:39 | Outpatient (CLI) | payer BC, SELFPAY ==
--- NOTE | ~2021-10-27 | CT_ITS ---
EXAMINATION: CT abdomen pelvis wo con DATE: 10/27/2021 11:11 INDICATION: Unspecified abdomen pain. History of liver transplant. TECHNIQUE: Computed tomography (CT) of the abdomen and pelvis was performed without intravenous contr ast. The dose-length product was 1048.39 mGy-cm. Automated exposure control and iterative reconstruct ion technique were employed. COMPARISON: CT dated 06/22/2020. FINDINGS: There is pneumobilia. There are cholecystectomy changes. No focal hepatic masses are identi fied on noncontrast examination. There is splenomegaly. The pancreas, adrenal glands and kidneys are unremarkable. No renal/ureteral stones or hydronephrosis. Bladder wall is thickened with perivesical fatty infiltration, suspicious for cystitis. There is subcutaneous edema of the anterior abdominal wa ll. There is atherosclerosis without aneurysm. No lymphadenopathy. Small amount of free fluid in the pelvis. Uterus is present. There are probable uterine fibroids. Nonobstructive bowel gas pattern. Sma ll fat-containing umbilical hernia. Small pleural effusions. Small pericardial effusion. There is dependent atelectasis. Mild lumbar spon dylosis. IMPRESSION: 1. Bladder wall thickening with perivesical fatty infiltration, suspicious for cystitis. Correlate cl inically. 2: Splenomegaly. Reviewed, dictated and finalized at location A. IMPRESSION: 1. Bladder wall thickening with perivesical fatty infiltration, suspicious for cystitis. Correlate clinically. 2: Splenomegaly.
== END 2021-10-27 10:40 | disposition home or self-care (01) ==
PROVIDERS: PCP Internal Medicine; Visit Provider Nurse Practitioner
DX: R10.9 Unspecified abdominal pain (principal); R93.41 Abnormal radiologic findings on diagnostic imaging of renal pelvis, ureter, or bladder; R16.1 Splenomegaly, not elsewhere classified
CPT/HCPCS: 74176

== ENCOUNTER 2021-11-07 13:56 | Outpatient (CLI) | payer BC, SELFPAY ==
[2021-11-07 14:27] LABS: Appearance Urine Clear (Clear); Bilirubin Urine Negative (Negative); Color Urine Yellow (Yellow); Glucose Urine UA Trace mg/dL (Negative); Ketones Urine Negative (Negative); Leukocyte Esterase Ur Negative LEU/UL (Negative); Nitrate Urine Negative (Negative); Protein Urine 3+ mg/dL (Negative); Urobilinogen Urine 0.2 mg/dL (<2.0)
[2021-11-07 14:33] LABS: Alanine Aminotransferase 18 U/L (6-35); Albumin Level 3.5 g/dL (3.5-5.1); Alkaline Phosphatase 65 U/L (38-126); Anion Gap 8 mmol/L (8-16); Aspartate Amino Transferase 16 U/L (14-36); Bilirubin,Total 0.5 mg/dL (0.2-1.3); Blood Urea Nitrogen 34 mg/dL (7-17); Calcium 7.7 mg/dL (8.4-10.2); Carbon Dioxide 14 mmol/L (22-30); Chloride 115 mmol/L (98-107); Estimated Glomerular Filt Rate 12; Glucose 193 mg/dL (65-110); Sodium 137 mmol/L (137-145)
[2021-11-07 14:34] LABS: Bacteria Urine Trace /hpf; Basophils Percent Auto 0.5 % (0.2-1.2); Eosinophils Absolute Auto 0.2 K/mm3 (0-0.3); Eosinophils Percent Auto 2.8 % (0-4.4); Hematocrit 24.4 % (37.0-47.0); Hemoglobin 7.3 g/dL (12.0-15.0); Immature Granulocyte Absolute 0.03 K/mm3 (0.00-0.031); Immature Granulocyte Percent A 0.5 % (0-0.5); Immature Platelet Fraction Pct 7.5 % (0.9-11.2); Lymphocytes Absolute Auto 2.21 K/mm3 (0.9-3.2); Lymphocytes Percent Auto 36.8 % (18.3-44.2); Mean Corpuscular HGB Conc 29.9 g/dl (32-36); Mean Corpuscular Hemoglobin 19.1 pg (26-34); Mean Corpuscular Volume 63.9 fl (80-100); Monocytes Absolute Auto 0.4 K/mm3 (0.1-0.6); Monocytes Percent Auto 6.8 % (2.6-8.5); Mucus Urine Rare /lpf; Neutrophils Absolute Auto 3.2 K/mm3 (1.3-6.7); Neutrophils Percent Auto 52.6 % (45.5-73.1); Platelet Count Result 151 k/mm3 (150-375); Red Blood Count 3.82 M/mm3 (4.2-5.4); Red Cell Distribution Width 18.7 % (11.5-14.5); Squamous Epithelial Cell Urine Many /hpf (Few)
[2021-11-07 15:26] LABS: Add Urine Microscopic? YES; Blood Urine Trace-Intact (Negative)
[2021-11-07 15:30] LABS: Microalbumin Urine Random > 1140.0 mg/L (0-16.7)
[2021-11-07 21:12] LABS: Platelet Estimate Adequate (Adequate)
[2021-11-07 21:13] LABS: Anisocytosis 2+ (NORMAL); Hypochromasia 1+ (NORMAL)
== END 2021-11-07 13:57 | disposition home or self-care (01) ==
LOC: ANHLAB 13:58
PROVIDERS: PCP Internal Medicine; Visit Provider Nurse Practitioner
DX: K74.60 Unspecified cirrhosis of liver (principal); N39.0 Urinary tract infection, site not specified; R10.9 Unspecified abdominal pain
CPT/HCPCS: 36415; 80053; 81001; 82043; 85025; 85055

== ENCOUNTER 2022-04-06 07:07 | Outpatient (RCR) | payer MEDICARE, OTHER, SELFPAY ==
[2022-04-05 11:13] LABS: Hematocrit 21.1 % (37.0-47.0); Immature Platelet Fraction Pct 10.1 % (0.9-11.2); Mean Corpuscular HGB Conc 29.9 g/dl (32-36); Mean Corpuscular Hemoglobin 20.9 pg (26-34); Mean Corpuscular Volume 69.9 fl (80-100); Platelet Count Result 152 k/mm3 (150-375); Red Blood Count 3.02 M/mm3 (4.2-5.4); Red Cell Distribution Width 20.6 % (11.5-14.5); White Blood Count 5.2 K/mm3 (4.5-10.0)
[2022-04-05 11:23] LABS: Hemoglobin 6.3 g/dL (12.0-15.0)
[2022-04-06] VITALS (12 sets, daily range): BP systolic 137–173; BP diastolic 43–70; PULSE 66–76; RESP 16–20; TEMP 36.6–37.1; O2SAT 100
[2022-04-06] MEDS: ACETAMINOPHEN 500 MG TABLET PO (08:10)
[2022-04-06] MEDS: diphenhydrAMINE HCl CAP 25 MG CAPSULE 50 MG PO (08:12)
[2022-04-06] MEDS: SODIUM CHLORIDE 0.9% IV 250 ML 30 ML IV CONT (08:14)
[2022-04-06] MEDS: FUROSEMIDE INJ 40 MG/4 ML VIAL IV PUSH ×2 (11:47→15:33)
== END 2022-07-04 23:59 | disposition home or self-care (01) ==
LOC: ANHCPCTRAN 07:07
PROVIDERS: PCP Internal Medicine; Visit Provider Internal Medicine Nephrology
DX: N18.9 Chronic kidney disease, unspecified (principal); D63.1 Anemia in chronic kidney disease
CPT/HCPCS: 36415; 36430; 85027; 85055; 86850; 86900; 86901; 86920; 96374; A9270; J1940; J7050; P9016

== ENCOUNTER 2022-11-28 09:46 | Outpatient (CLI) | payer MEDICARE, OTHER, SELFPAY ==
--- NOTE | ~2022-11-28 | DEXA_ITS ---
Bone Density Report Name: DILSHAD GOVEA Age: 62 Sex: Female Ethnicity: White Date of : 1960 Indication: postmenopausal; screening for osteoporosis; parental hip fracture; height loss; end stage renal disease; Referring Provider: John, Yola Galarza Study: Bone densitometry was performed. Exam Date: November 28, 2022 Accession number: [id number] Bone Density: Region BMD T-score Z-score Classification AP Spine(L2, L3, L4) 0.722 -3.2 -1.5 Osteoporosis Femoral Neck (Left) 0.503 -3.1 -1.6 Osteoporosis Total Hip (Left) 0.639 -2.5 -1.3 Osteoporosis Femoral Neck (Right) 0.492 -3.2 -1.7 Osteoporosis Total Hip (Right) 0.604 -2.8 -1.6 Osteoporosis Femoral Neck Mean 0.497 -3.2 -1.7 Osteoporosis Total Hip Mean 0.621 -2.6 -1.4 Osteoporosis World Health Organization criteria for BMD impression classify patients as: Normal (T-score at or above -1.0), Osteopenia (T-score between -1.0 and -2.5), or Osteoporosis (T-score at or below -2.5). 10-year Fracture Risk: FRAX not reported because: Some T-score for Spine Total or Hip Total or Femoral Neck at or below -2.5 Clinical Information Provided by Patient: Parent has had a hip fracture Has used the following medications: Evista (i.e. raloxifene), Vitamin D, Calcium Has the following medical conditions: End stage renal disease Patient maximum height was 65 Menopause Age: 56 No regular weight bearing exercise Does not regularly consume dairy products Drinks caffeinated beverages Onset of menses at age 12 Number of children 3 Impression: The patient has osteoporosis, based on the Total Spine T-score. The patient has risk factors, including: parental hip fracture. Discussion: INCREASED RISK OF FRACTURE. BONE DENSITY IS UNDESIRABLY LOW AT ONE OR MORE SKELETAL SITES, CONSISTENT WITH POSTMENOPAUSAL OSTEOPOROSIS. This patient's lowest T-score meets the World Health Organization's (WHO) criteria for osteoporosis at one or more sites (T-score -2.5 or below). In untreated patients, the risk of osteoporotic fracture increases approximately two-fold for each 1.0 SD decrease in T-score. Low bone density is not the only risk factor for fracture; also consider factors such as patient's age, frailty or poor health, risk of falling, risk of injury, previous osteoporotic fracture, family history of osteoporosis, cigarette smoking, low body weight, etc. Not everyone with low bone mineral density has osteoporosis; osteomalacia and other metabolic bone disorders should also be considered. Patients who have osteoporosis should be evaluated for specific diseases and conditions (secondary causes) that may cause or contribute to bone loss. The [place] [employer] Endocrinologists (AACE) and National Osteoporosis Foundation (NOF) recommend pharmacologic inte
--- NOTE | ~2022-11-28 | MM_ITS ---
EXAMINATION: MM screening [facility] BI w abhijit HISTORY: Screening mammogram TECHNIQUE: Craniocaudal and mediolateral oblique 3-D tomosynthesis images were obtained and synthetic 2-D images were generated. CAD analysis was submitted and interpreted. COMPARISON: 02/27/2019, 09/23/2017, 02/01/2016 BREAST PARENCHYMAL COMPOSITION: There are scattered areas of fibroglandular density. FINDINGS: No suspicious mass, calcification, or architectural distortion are identified in either chelita ast to suggest malignancy. There has been no suspicious interval change. IMPRESSION: 1. No mammographic evidence of malignancy. 2. Recommend routine screening mammography in one year. BI-RADS Category 1: Negative Reviewed, dictated and finalized at location A.
== END 2022-11-28 09:47 | disposition home or self-care (01) ==
PROVIDERS: PCP Internal Medicine; Visit Provider Nurse Practitioner Obstetrics & Gynecology
DX: Z12.31 Encounter for screening mammogram for malignant neoplasm of breast (principal); Z78.0 Asymptomatic menopausal state; M81.0 Age-related osteoporosis without current pathological fracture
CPT/HCPCS: 77063; 77067; 77080

== ENCOUNTER 2023-04-03 14:57 | Outpatient (CLI) | payer MEDICARE, OTHER, SELFPAY | END 2023-04-03 14:58 | disposition home or self-care (01) | LOC: ANHAUDIO 14:58 | PROVIDERS: PCP Internal Medicine; Visit Provider Otolaryngology | DX: H90.A21 Sensorineural hearing loss, unilateral, right ear, with restricted hearing on the contralateral side (principal); H90.A32 Mixed conductive and sensorineural hearing loss, unilateral, left ear with restricted hearing on the contralateral side | CPT/HCPCS: 92557; 92567 ==

== ENCOUNTER 2023-05-22 07:56 | Outpatient (CLI) | payer MEDICARE, OTHER, SELFPAY ==
--- NOTE | ~2023-05-22 | MR_ITS ---
EXAMINATION: MR IAC wo/w con DATE: 05/22/2023 09:24 INDICATION: Unspecified hearing loss, bilateral. TECHNIQUE: Magnetic resonance imaging (MRI) of the brain, brainstem, and internal auditory canals was performed without and with 17 mL MultiHance intravenous contrast. COMPARISON: Head CT 04/30/2020 FINDINGS: There are scattered areas of nonspecific increased T2-weighted signal intensity in the cere bral white matter. There is no intracranial hemorrhage, acute infarction, or abnormal intracranial ma ss lesion. The ventricles are normal in size. There is mucosal thickening in the paranasal sinuses. T he orbits are normal. The internal auditory canals and inner ears are normal. There is a right mastoi d effusion. There is a left otomastoid effusion. IMPRESSION: 1. Moderate nonspecific cerebral white matter disease, which likely represents chronic small vessel i schemic disease. 2. Right mastoid effusion. 3. Left otomastoid effusion. Reviewed, dictated and finalized at location E. 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 Moderate nonspecific cerebral white matter disease, which likely represents chronic small vessel ischemic disease. 2. Right mastoid effusion. 3. Left otomastoid effusion.
== END 2023-05-22 07:57 | disposition home or self-care (01) ==
PROVIDERS: PCP Internal Medicine; Visit Provider Otolaryngology
DX: H91.93 Unspecified hearing loss, bilateral (principal); R90.82 White matter disease, unspecified
CPT/HCPCS: 70553; A9577

== ENCOUNTER 2023-05-30 16:38 | Inpatient (IN) | payer MEDICARE, OTHER, SELFPAY ==
[2023-05-30] VITALS (9 sets, daily range): BP systolic 128–168; BP diastolic 41–82; PULSE 90–105; RESP 16–37; TEMP 36.5–38.8; O2SAT 93–97; BMI 31.4
--- NOTE | ~2023-05-30 | CT_ITS ---
EXAMINATION: CT abdomen pelvis wo con DATE: 05/30/2023 19:11 INDICATION: Sepsis. Nausea and vomiting. TECHNIQUE: Computed tomography (CT) of the abdomen and pelvis was performed without intravenous contr ast. Automated exposure control and iterative reconstruction technique were employed. The dose-length product was 1122.20 mGy-cm. COMPARISON: CT abdomen and pelvis 10/27/21 FINDINGS: The visualized portions of the lung bases demonstrate mild atelectasis. There is a small ri ght pleural effusion. The heart size is normal. No pericardial effusion. There is a central venous ca theter tip at superior cavoatrial junction. There are surgical clips around the inferior vena cava fr om liver transplant. There is mild splenomegaly. There are changes of cholecystectomy. The pancreas, adrenal glands, and right kidney are normal. There is hyperdense material in left kidney. There is a 4.9 x 4.2 cm mass of left kidney. There are no dilated loops of bowel. There are no dilated loops of bowel. The appendix is not visualized. Aortic atherosclerosis is noted. There are no pathologically e nlarged lymph nodes. There is trace pelvic ascites. There is mild lumbar spondylosis. IMPRESSION: 1. Small right pleural effusion. 2. 4.9 cm mass of left kidney, which may be a hematoma. Correlate with clinical history. Hyperdense m aterial in left kidney may be embolization material. Reviewed, dictated and finalized at location E. ECTION ENGINEER IMPRESSION: 1. Small right pleural effusion. 2. 4.9 cm mass of left kidney, which may be a hematoma. Correlate with clinical history. Hyperdense material in left kidney may be embolization material.
--- NOTE | ~2023-05-30 | XR_ITS ---
XR chest 1V portable DATE: 05/30/2023 17:17 INDICATION: Cough, shortness of breath TECHNIQUE: 05/30/2023 portable AP chest at 1715 hours COMPARISON: 06/10/2021 2 view chest FINDINGS: Right central venous catheter tip overlying right atrium. There is cardiomegaly, pulmonary vascular congestion and redistribution. There is patchy consolidati on of the mid to upper right lung, which may be due to pulmonary edema versus pneumonia. There is prominence of the minor fissure and there are bilateral Zhao B lines consistent with pulmo nary interstitial edema. No pleural effusion or pneumothorax. IMPRESSION: Cardiomegaly, congestive heart failure Patchy consolidation, right mid to upper lung; differential diagnosis includes pulmonary edema, pneum onia Right dialysis catheter tip overlying right atrium Reviewed, dictated and finalized at location L. ATTENDANT IMPRESSION: Cardiomegaly, congestive heart failure Patchy consolidation, right mid to upper lung; differential diagnosis includes pulmonary edema, pneumonia Right dialysis catheter tip overlying right atrium
--- NOTE | 2023-05-30 16:44 | ECG_ITS ---
Measurements Intervals [place] Rate: 103 P: 33 MD: 136 QRS: -7 QRSD: 81 T: 51 QT: 321 QTc: 422 Interpretive Statements SINUS TACHYCARDIA ATRIAL PREMATURE COMPLEX DELAYED PRECORDIAL R/S TRANSITION LEFT VENTRICULAR HYPERTROPHY WITH ST-T CHANGE BORDERLINE ECG COMPARED TO ECG 12/18/2018 09:53:04 SINUS TACHYCARDIA NOW PRESENT LEFT VENTRICULAR HYPERTROPHY NOW PRESENT Electronically Signed On 05-30-2023 18:08:05 CHASER HELPER by Mario Garcia D.O.
[2023-05-30 16:57] LABS: Glucose Point of Care 220 mg/dl (65-105)
[2023-05-30 17:01] LABS: Basophils Percent Auto 0.3 % (0.2-1.2); Eosinophils Absolute Auto 0.2 K/mm3 (0-0.3); Eosinophils Percent Auto 1.4 % (0-4.4); Hematocrit 28.7 % (37.0-47.0); Hemoglobin 8.5 g/dL (12.0-15.0); Immature Granulocyte Absolute 0.46 K/mm3 (0.00-0.031); Immature Granulocyte Percent A 2.9 % (0-0.5); Immature Platelet Fraction Pct 9.9 % (0.9-11.2); Lymphocytes Absolute Auto 0.91 K/mm3 (0.9-3.2); Lymphocytes Percent Auto 5.8 % (18.3-44.2); Mean Corpuscular HGB Conc 29.6 g/dl (32-36); Mean Corpuscular Hemoglobin 18.8 pg (26-34); Mean Corpuscular Volume 63.5 fl (80-100); Monocytes Absolute Auto 1.2 K/mm3 (0.1-0.6); Monocytes Percent Auto 7.9 % (2.6-8.5); Neutrophils Absolute Auto 12.9 K/mm3 (1.3-6.7); Neutrophils Percent Auto 81.7 % (45.5-73.1); Platelet Count Result 96 k/mm3 (150-375); Red Blood Count 4.52 M/mm3 (4.2-5.4); Red Cell Distribution Width 18.5 % (11.5-14.5); White Blood Count 15.7 K/mm3 (4.5-10.0)
[2023-05-30 17:10] LABS: Alanine Aminotransferase 18 U/L (6-35); Albumin Level 3.9 g/dL (3.5-5.1); Alkaline Phosphatase 68 U/L (38-126); Anion Gap 12 mmol/L (8-16); Aspartate Amino Transferase 21 U/L (14-36); Bilirubin,Total 1.1 mg/dL (0.2-1.3); Blood Urea Nitrogen 41 mg/dL (7-17); Calcium 7.9 mg/dL (8.4-10.2); Carbon Dioxide 24 mmol/L (22-30); Chloride 97 mmol/L (98-107); Estimated CRCL calculation 11 ml/min; Estimated Glomerular Filt Rate 8; Glucose 227 mg/dL (65-110); Potassium 3.8 mmol/L (3.4-5.0); Sodium 133 mmol/L (137-145)
--- NOTE | 2023-05-30 17:15 | ED.GENADULT ---
HPI - General Adult General Chief complaint: Weakness <DELIA Curiel Last Filed: 05/31/23 02:53> Stated complaint: WEAKNESS <DELIA Curiel Last Filed: 05/31/23 02:53> Time Seen by Provider: 05/30/23 16:49 <DELIA Curiel Last Filed: 05/31/23 02:53> Source: patient and family <DELIA Curiel Last Filed: 05/31/23 02:53> Mode of arrival: EMS <DELIA Curiel Filed: 05/31/23 02:53> Limitations: no limitations <DELIA Curiel Last Filed: 05/31/23 02:53> History of Present Illness HPI narrative: Patient is a 62 y/o female who presents to the ED via EMS with report of weakness, N/V. Patient has Hx of insulin dependent DM, ESRD on peritoneal dialysis, sees Dr. Francisco, hx of liver transplant 2020 r/t fatty liver disease. patient reports she performed her peritoneal dialysis last night and states she often feels ill afterwards, has frequent issues with dehydration. She states she has not felt well all day today and c/o nausea and vomiting. She has had productive cough with yellow sputum over the last few days. She also reports fevers and chills today, weakness, mild SOB, diarrhea. Denies rectal bleeding or melena. at bedside reports patient has been very lethargic, sleeping frequently, falling asleep mid sentence today. reports patient had yearly transplant follow-up in the last 1 month which was normal. They did adjust her Tacrolimus at that time. <DELIA Curiel Last Filed: 05/31/23 02:53> Related Data Home medications: Home Medications Medication Instructions Recorded Confirmed tacrolimus 1 mg capsule, 1 mg PO QAM 10/02/21 05/30/23 immediate-release blood-glucose sensor (Dexcom G6 10/05/21 05/30/23 Sensor device) blood-glucose transmitter (Dexcom 10/05/21 05/30/23 G6 Transmitter device) insulin lispro 100 unit/mL 1 sliding scale dose subcut 10/05/21 05/30/23 subcutaneous pen USEASDIRECTD pen needle, diabetic 32 gauge x 10/05/21 05/30/23 (Pen Needle) calcium acetate(phosphat bind) 667 667 mg PO TID 10/03/22 05/30/23 mg capsule insulin glargine 100 unit/mL (3 See Rx Instructions subcut DAILY 10/03/22 05/30/23 mL) subcutaneous pen (Basaglar KwikPen U-100 Insulin) irbesartan 150 mg tablet 300 mg PO QNOON 02/28/23 05/30/23 carvedilol 12.5 mg tablet 12.5 mg PO BID 05/30/23 05/30/23 sertraline 25 mg tablet 25 mg PO DAILY 05/30/23 05/30/23 tacrolimus 1 mg capsule, 2 mg PO HS 05/30/23 05/30/23 immediate-release mycophenolate sodium 360 mg 360 mg PO Q12H 05/31/23 05/31/23 tablet,delayed release (Myfortic) <DELIA Curiel Last Filed: 05/31/23 02:53> Allergies/adverse reactions: Allergies Allergy/AdvReac Type Severity Reaction Status Date / Time Sulfa (Sulfonamide Allergy Intermediate Rash Verified 02/28/23 11:02 Antibiotics) adhesive tape Allergy Mild rash Verified 02/28/23 11:02 amlodipine Allergy Unknown Unknown Verified 02/28/23 11:02 clindamycin Allergy Unknown Rash Verified 02/28/23 11:02 <DELIA Curiel Last Filed: 05/31/23 02:53> Review of Systems Review of Systems: CONSTITUTIONAL: See HPI CARDIOVASCULAR: Denies chest pain, palpitations, or edema. RESPIRATORY: See HPI GASTROINTESTINAL: See HPI GENITOURINARY: Denies dysuria or hematuria. NEUROLOGIC: See HPI <DELIA Curiel Last Filed: 05/31/23 02:53> All systems reviewed & are unremarkable except as noted in HPI and below <DELIA Curiel Last Filed: 05/31/23 02:53> [facility] Past Medical History Medical History: Medical History Abnormal uterine bleeding Allergies Anemia Broken arm Left humerus bone March 2019 Cirrhosis CMV (cytomegalovirus infection) Depression with anxiety DM (diabetes mellitus) Encounter for blood mosquera
[2023-05-30 17:16] LABS: Platelet Estimate Decreased (Adequate)
[2023-05-30 17:17] LABS: Anisocytosis 1+ (NORMAL); Hypochromasia 2+ (NORMAL); Schistocytes None Seen (NORMAL); Tear Drop Cells 1+ (NORMAL)
[2023-05-30 17:21] LABS: Lactic Acid Reflex 2.8 mmol/L (0.7-2.0)
[2023-05-30] MEDS: ONDANSETRON INJ 4 MG/2 ML VIAL IV PUSH (17:35)
[2023-05-30] MEDS: KETOROLAC 15 MG/ML VIAL (*BKC) IV PUSH (17:35)
[2023-05-30] MEDS: SODIUM CHLORIDE 0.9% IV 1,000 ML 999 ML IV CONT (17:36)
[2023-05-30 17:44] LABS: Influenza A QL RT-PCR Negative (Negative); Influenza B QL RT-PCR Negative (Negative); RSV RNA, RT-PCR Negative (Negative); SARS-CoV-2 RNA PCR Negative (Negative)
[2023-05-30 17:47] LABS: Lipase 29 U/L (23-300); Magnesium 1.3 mg/dL (1.6-2.3)
[2023-05-30 17:52] LABS: INR 1.2
[2023-05-30 17:53] LABS: Partial Thromboplastin Time 43.9 SECONDS (22.3-36.8)
[2023-05-30 18:00] LABS: NT Pro B Type Natriuretic Pept > 30000 pg/mL (19.9-100); Troponin I 0.029 ng/mL (0.000-0.034)
[2023-05-30] MEDS: CEFEPIME 2 GM/NS 50 ML 2 GM/50 ML BAG IVPB (18:55)
[2023-05-30 19:35] LABS: MRSA (PCR) NOT DETECTED (NOT DETECTE)
[2023-05-30] MEDS: VANCOMYCIN 1,750 MG/NS 500 ML 1,750 MG/500 ML BAG 250 MG IVPB (19:40)
[2023-05-30] MEDS: MAGNESIUM SULF 2 GM/WATER 50ML 2 GM/50 ML BAG IVPB (19:40)
--- NOTE | 2023-05-30 20:00 | ECG_ITS ---
Measurements Intervals [place] Rate: 91 P: 39 FL: 147 QRS: -3 QRSD: 73 T: 62 QT: 357 QTc: 440 Interpretive Statements SINUS RHYTHM LEFT VENTRICULAR HYPERTROPHY WITH ST-T CHANGE BORDERLINE ECG COMPARED TO ECG 05/30/2023 16:50:46 SINUS RHYTHM NOW PRESENT Electronically Signed On 05-31-2023 6:34:19 [employer] PSYCHOLOGIST by Mario Garcia D.O.
--- NOTE | 2023-05-30 20:04 | PM.IMHP ---
H&P: HPI History of Present Illness Date/Time: 05/30/23 20:04 Chief Complaint: Weakness Narrative: This is a 62-year-old female with past medical history significant for end-stage renal disease on hemodialysis, hypertension, insulin-dependent diabetes mellitus, liver transplant on chronic immunosuppressive therapy. Patient presents to the emergency room due to nausea, vomiting, for 2 days, generalized weakness, poor per orally intake, poor appetite. patient dialyzes 4 times a week. Preliminary workup was significant for chest x-ray with patchy infiltrates of the lungs. Patient tested negative for influenza type A influenza type B RSV and COVID-19 XR chest 1V portable DATE: 05/30/2023 17:17 INDICATION: Cough, shortness of breath? TECHNIQUE: 05/30/2023 portable AP chest at 1715 hours? COMPARISON: 06/10/2021 2 view chest? FINDINGS: Right central venous catheter tip overlying right atrium.? There is cardiomegaly, pulmonary vascular congestion and redistribution.? There is patchy consolidation of the mid to upper right lung, which may be due to pulmonary edema versus pneumonia. There is prominence of the minor fissure and there are bilateral Zhao B lines consistent with pulmonary interstitial edema. No pleural effusion or pneumothorax. IMPRESSION: Cardiomegaly, congestive heart failure Patchy consolidation, right mid to upper lung; differential diagnosis includes pulmonary edema, pneumonia Right dialysis catheter tip overlying right atrium? EXAMINATION: CT abdomen pelvis wo con DATE: 05/30/2023 19:11 INDICATION: Sepsis. Nausea and vomiting. TECHNIQUE: Computed tomography (CT) of the abdomen and pelvis was performed without intravenous contrast. Automated exposure control and iterative reconstruction technique were employed. The dose-length product was 1122.20 mGy-cm. COMPARISON: CT abdomen and pelvis 10/27/21 FINDINGS: The visualized portions of the lung bases demonstrate mild atelectasis. There is a small right pleural effusion. The heart size is normal. No pericardial effusion. There is a central venous catheter tip at superior cavoatrial junction. There are surgical clips around the inferior vena cava from liver transplant. There is mild splenomegaly. There are changes of cholecystectomy. The pancreas, adrenal glands, and right kidney are normal. There is hyperdense material in left kidney. There is a 4.9 x 4.2 cm mass of left kidney. There are no dilated loops of bowel. There are no dilated loops of bowel. The appendix is not visualized. Aortic atherosclerosis is noted. There are no pathologically enlarged lymph nodes. There is trace pelvic ascites. There is mild lumbar spondylosis. IMPRESSION: 1. Small right pleural effusion. 2. 4.9 cm mass of left kidney, which may be a hematoma. Correlate with clinical history. Hyperdense material in left kidney may be embolization material. Review of Systems Review of Systems: Generalized weakness, generalized malaise, nausea, vomiting, poor appetite, poor per orally intake. Constitutional: Constitutional: Reports malaise, Reports poor appetite and Reports weakness Eyes: Eyes: Denies change in vision ENT: Denies dysphagia and Denies odynophagia Cardiovascular: Cardiovascular: Denies chest pain, Denies radiating jaw, neck or arm pain and Denies palpitations Respiratory: Respiratory: Denies chest congestion, Denies cough and Denies dyspnea Gastrointestinal: Gastrointestinal: Reports nausea and Reports vomiting Genitourinary: Genitourinary: Denies dysuria Integumentary/Breasts: Skin/Breast: Reports rash Neurologic: Reports focal weakness and Reports Sensory deficit (Neuro) Psychiatric: Psychiatric: Reports no additional psychiatric complaints and Reports as per HPI Endocrine: Endocrine: Denies cold intolerance, Denies flushing, Denies heat intolerance, Denies polyphagia, Denies polydipsia and Denies palpitations Hematologic/Lymphatic: Hematologic/Lymphatic: Reports
[2023-05-30 20:05] LABS: Reflex Lactic Acid Yes or No Add Lactic
[2023-05-30 21:05] LABS: Lactic Acid 1.1 mmol/L (0.7-2.0)
[2023-05-30 21:20] LABS: Troponin I 0.039 ng/mL (0.000-0.034)
--- NOTE | 2023-05-30 22:56 | ADMGEN ---
This patient, Chante Goldsmith, was admitted to IMU Room 204-01 at 2140. Patient/family oriented to hospital policies and general routines including ID bracelet, bed and alarms, visiting hours, pain management, procedures, bathroom and other care routines, personal items, smoking policy, room service/diet, and visiting hours. Information on how to activate the Rapid Response Team has been discussed. Patient/Family are encouraged to report perceived risks to care and to ask questions if they do not understand what they are told or what they should do.
[2023-05-30 23:31] LABS: Troponin I 0.038 ng/mL (0.000-0.034)
[2023-05-31] VITALS (29 sets, daily range): BP systolic 109–152; BP diastolic 38–64; PULSE 75–91; RESP 16–20; TEMP 35.9–37.2; O2SAT 94–98
[2023-05-31 04:39] LABS: Estimated CRCL calculation 10 ml/min; Estimated Glomerular Filt Rate 7
[2023-05-31 06:42] LABS: Basophils Percent Auto 0.3 % (0.2-1.2); Hematocrit 25.8 % (37.0-47.0); Hemoglobin 7.6 g/dL (12.0-15.0); Immature Granulocyte Absolute 0.23 K/mm3 (0.00-0.031); Immature Granulocyte Percent A 1.5 % (0-0.5); Immature Platelet Fraction Pct 14.2 % (0.9-11.2); Lymphocytes Absolute Auto 1.62 K/mm3 (0.9-3.2); Lymphocytes Percent Auto 10.9 % (18.3-44.2); Mean Corpuscular HGB Conc 29.5 g/dl (32-36); Mean Corpuscular Hemoglobin 18.9 pg (26-34); Mean Corpuscular Volume 64.2 fl (80-100); Monocytes Absolute Auto 1.2 K/mm3 (0.1-0.6); Monocytes Percent Auto 8.3 % (2.6-8.5); Neutrophils Absolute Auto 11.8 K/mm3 (1.3-6.7); Platelet Count Result 89 k/mm3 (150-375); Red Blood Count 4.02 M/mm3 (4.2-5.4); Red Cell Distribution Width 18.4 % (11.5-14.5); White Blood Count 14.9 K/mm3 (4.5-10.0)
[2023-05-31 06:48] LABS: Albumin Level 3.5 g/dL (3.5-5.1)
[2023-05-31 06:52] LABS: Alanine Aminotransferase 12 U/L (6-35); Alkaline Phosphatase 74 U/L (38-126); Anion Gap 14 mmol/L (8-16); Aspartate Amino Transferase 17 U/L (14-36); Bilirubin,Total 0.9 mg/dL (0.2-1.3); Blood Urea Nitrogen 47 mg/dL (7-17); Calcium 8.1 mg/dL (8.4-10.2); Carbon Dioxide 23 mmol/L (22-30); Chloride 99 mmol/L (98-107); Estimated CRCL calculation 9 ml/min; Estimated Glomerular Filt Rate 7; Glucose 200 mg/dL (65-110); Potassium 4.2 mmol/L (3.4-5.0); Sodium 136 mmol/L (137-145)
[2023-05-31 07:32] LABS: Platelet Estimate Decreased (Adequate); Schistocytes 1+ (NORMAL); Target Cells 1+ (NORMAL); Tear Drop Cells 2+ (NORMAL)
[2023-05-31 07:33] LABS: Hypochromasia 3+ (NORMAL); Ovalocytes 2+ (NORMAL)
[2023-05-31 07:34] LABS: Hepatitis B Surface Antigen Negative (Negative)
[2023-05-31 07:51] LABS: Hepatitis B Surface Anti Res Negative
[2023-05-31 08:26] LABS: Glucose Point of Care 170 mg/dl (65-105)
[2023-05-31] MEDS: INSULIN GLARGINE (*BKC) 100 UNITS/ML 12 UNITS SUB-Q (09:06)
[2023-05-31] MEDS: carvediloL 12.5 MG TABLET PO ×2 (09:07→21:02)
[2023-05-31] MEDS: SERTRALINE HCL 25 MG TABLET PO (09:07)
[2023-05-31] MEDS: TACROLIMUS 0.5 MG CAPSULE 1 MG PO (09:07)
[2023-05-31] MEDS: FLUTICASONE PROPIONATE 0.05% NA SPR 16 GM BTL (*BKC) 1 SPRAY NASAL ×2 (09:07→21:01)
[2023-05-31] MEDS: CALCIUM ACETATE 667 MG TABLET PO ×3 (09:07→18:43)
[2023-05-31] MEDS: guaiFENesin 12 HR 600 MG TABCR PO ×2 (11:36→23:56)
[2023-05-31] MEDS: IRBESARTAN 150 MG TABLET 300 MG PO (11:36)
[2023-05-31 11:56] LABS: Glucose Point of Care 181 mg/dl (65-105)
[2023-05-31 14:10] LABS: Appearance Urine Cloudy (Clear); Bacteria Urine None Seen /hpf; Bilirubin Urine Negative (Negative); Blood Urine 1+ (Negative); Color Urine Yellow (Yellow); Glucose Urine UA Negative (Negative); Ketones Urine Trace mg/dL (Negative); Leukocyte Esterase Ur 1+ LEU/UL (Negative); Need Manual Microscopic Reviewed; Nitrate Urine Negative (Negative); Protein Urine 3+ mg/dL (Negative); Specific Grav Ur 1.016 (1.001-1.035); Squamous Epithelial Cell Urine Few /hpf (Few); Urobilinogen Urine 0.2 mg/dL (<2.0); WBC Urine 51-100 /hpf
[2023-05-31 14:13] LABS: Add Urine Microscopic? YES
--- NOTE | 2023-05-31 16:00 | PM.CNNEP ---
Assessment and Plan Assessment and plan (1) End stage renal disease: Code(s): N18.6 - End stage renal disease Status: Chronic Assessment and Plan: HD today follow electrolytes, volume status, and clearance likely HD tomorrow to ensure she get her 4 treatments/week normally does home hemodialysis (2) Pneumonia: Qualifiers: Laterality: right Lung location: middle lobe of lung Pneumonia type: due to unspecified organism Qualified Code(s): J18.9 - Pneumonia, unspecified organism Code(s): J18.9 - Pneumonia, unspecified organism Status: Acute Assessment and Plan: as suggested by admission imaging follow culture data on antibiotic therapy follow respiratroy status (3) Volume overload: Code(s): E87.70 - Fluid overload, unspecified Status: Acute Assessment and Plan: also noted by admission imaging fluid removal with dialysis to compensate (4) Liver transplant recipient: Code(s): Z94.4 - Liver transplant status Status: Chronic Assessment and Plan: continue home immunosuppressant therapy I will continue to follow the patient with you while she remains hospitalized to make further recommendations as needed. Thank you for allowing me to participate in the care of this patient. History of Present Illness Reason for Consult Consult date: 05/31/23 Reason for consult: end stage renal disease Chief Complaint Chief complaint: Sepsis,Lactic Acidosis,PNA,Hypomag,ESRD on Nancy Di History of Present Illness Narrative: The patient is a 62-year-old female with a past medical history as outlined below who presented to [facility] Emergency room with complaints nausea, vomiting, and not feeling well. She reports the symptoms over the course of this stay in association with a productive cough with yellow sputum over the last few days. She reports subjective fevers and chills but denies any chest pain. She does endorse generalized fatigue, mild shortness of breath and some issues with diarrhea. Her reported in the emergency room that he feels that she has also been a bit lethargic as well As he has noticed that there are times where she falls asleep when conversing in mid sentence. Given these constellation of symptoms, she came to the ER for further assessment. Workup and evaluation in the emergency room demonstrated the patient to be hemodynamically stable if not hypertensive but she was noted to be tachycardic, tachypneic, and febrile. Her oxygen saturations were stable on room air but she seemed to be somewhat somnolent on arrival to the emergency room. Routine blood test demonstrated elevated white blood cell count of 15.7 with a neutrophil predominance but no bandemia in association with chronic anemia. Her chemistry showed labs consistent with her known history of end-stage renal disease. Her lactic acid was mildly elevated and her chest x-ray was consistent with CHF/volume overload with findings of pulmonary edema and possible pneumonia BNP was urine 30,000. subsequent imaging including a CT scan of her abdomen pelvis was unrevealing but given her immunocompromised state, broad-spectrum IV antibiotic therapy was initiated after appropriate blood cultures were obtained. Her viral swabs for Covid, RSV, and influenza were negative. She was subsequently admitted to the hospital for further evaluation and therapy. Renal consultation was requested due to her end-stage renal disease. The patient normally does home hemodialysis four days a week under the care of Dr. Javad Francisco through [facility]. From a dialysis perspective, she has been doing reasonably well and is compliant with her treatments. She usually does her home hemodialysis treatments on Mondays, Tuesdays, , and Fridays. She did not do her dialysis treatment yesterday evening due to her presentation to the ER for her above complaint
--- NOTE | 2023-05-31 16:10 | P.PNIM_ITS ---
Progress Note: A&P Assessment and Plan (1) Sepsis: Qualifiers: Sepsis acute organ dysfunction status: unspecified Sepsis type: sepsis due to unspecified organism Qualified Code(s): A41.9 - Sepsis, unspecified o rganism Code(s): A41.9 - Sepsis, unspecified organism Status: Acute Assessment and Plan: * likely source to be pneumonia * continue cefepime, vanc d/c as MRSA negative * BC pending * supportive care * continue to monitor (2) Pneumonia: Qualifiers: Laterality: right Lung location: middle lobe of lung Pneumonia type: due to unspecified organism Qualified Code(s): J18.9 - Pneumonia, unspecified organism Code(s): J18.9 - Pneumonia, unspecified organism Status: Acute Assessment and Plan: * CXR showed Cardiomegaly, congestive heart failure. Patchy consolidation, right mid to upper lung; differential diagnosis includes pulmonary edema, pneumonia. Right dialysis catheter tip overlying right atrium * continue cefepime, vancomycin d/c as MRSA negative * respiratory panel negative (3) Lactic acidosis: Code(s): E87.20 - Acidosis, unspecified Status: Resolved Assessment and Plan: * repeat 1.1 * continue to monitor (4) CKD (chronic kidney disease) requiring chronic dialysis: Code(s): N18.6 - End stage renal disease; Z99.2 - Dependence on renal dialysis Status: Chronic Assessment and Plan: * creatinine 6.10, eGFR 7 this am * continue dialysis - on T/W/F/S schedule this week * nephrology consulted - hope to go to dialysis today (5) Liver transplant recipient: Code(s): Z94.4 - Liver transplant status Status: Chronic Assessment and Plan: * continue tacrolimus Subjective Date/time seen: 05/31/23 16:10 Interval history: Patient is in no acute distress this morning on exam, but continues to report she feels general malaise. 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 Will hopefully keep her on schedule with dialysis today. BC pending, continue cefepime. MRSA negative, Vanc d/c. Denies abdominal pain or vomiting this am. VS stable. Will continue to monitor her response to AB therapy. Review of Systems Review of Systems: All systems reviewed & are unremarkable except as noted in HPI and below Exam Const: General: no acute distress HENMT: Mouth: Yes moist mucous membranes Eyes: Pupils: Equal, round and reactive pupils present EOM: EOMs intact bilaterally Neck: Neck: supple Resp: Effort & Inspection: normal respiratory effort Auscultation: clear to auscultation bilaterally Cardio: Rate: regular rate Rhythm: regular rhythm Skin: General skin exam: normal color and no rashes or lesions noted W ounds: no wounds Other: left upper arm fistula Neuro: Speech: normal speech Sensory Exam: normal sensation Extrem: General: normal to inspection Psych: Mental Status: mental status grossly normal Affect: normal affect Objective Data Vital Signs Vital Signs: Vital Signs - 24 hr 05/30/23 16:39 05/30/23 16:52 05/30/23 19:47 Temperature 102 F H Pulse Rate 103 H 105 H 93 Respiratory Rate 37 H Blood Pressure 161/57 H Pulse Oximetry 97 Oxygen Delivery Room Air 05/30/23 19
--- NOTE | 2023-05-31 16:10 | PM.IMPN ---
Progress Note: A&P Assessment and Plan (1) Sepsis: Qualifiers: Sepsis acute organ dysfunction status: unspecified Sepsis type: sepsis due to unspecified organism Qualified Code(s): A41.9 - Sepsis, unspecified organism Code(s): A41.9 - Sepsis, unspecified organism Status: Acute Assessment and Plan: likely source to be pneumonia continue cefepime, vanc d/c as MRSA negative BC pending supportive care continue to monitor (2) Pneumonia: Qualifiers: Laterality: right Lung location: middle lobe of lung Pneumonia type: due to unspecified organism Qualified Code(s): J18.9 - Pneumonia, unspecified organism Code(s): J18.9 - Pneumonia, unspecified organism Status: Acute Assessment and Plan: CXR showed Cardiomegaly, congestive heart failure. Patchy consolidation, right mid to upper lung; differential diagnosis includes pulmonary edema, pneumonia. Right dialysis catheter tip overlying right atrium continue cefepime, vancomycin d/c as MRSA negative respiratory panel negative (3) Lactic acidosis: Code(s): E87.20 - Acidosis, unspecified Status: Resolved Assessment and Plan: repeat 1.1 continue to monitor (4) CKD (chronic kidney disease) requiring chronic dialysis: Code(s): N18.6 - End stage renal disease; Z99.2 - Dependence on renal dialysis Status: Chronic Assessment and Plan: creatinine 6.10, eGFR 7 this am continue dialysis - on T/W/F/S schedule this week nephrology consulted - hope to go to dialysis today (5) Liver transplant recipient: Code(s): Z94.4 - Liver transplant status Status: Chronic Assessment and Plan: continue tacrolimus Subjective Date/time seen: 05/31/23 16:10 Interval history: Patient is in no acute distress this morning on exam, but continues to report she feels general malaise. 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 Will hopefully keep her on schedule with dialysis today. BC pending, continue cefepime. MRSA negative, Vanc d/c. Denies abdominal pain or vomiting this am. VS stable. Will continue to monitor her response to AB therapy. Review of Systems Review of Systems: All systems reviewed & are unremarkable except as noted in HPI and below Exam Const: General: no acute distress HENMT: Mouth: Yes moist mucous membranes Eyes: Pupils: Equal, round and reactive pupils present EOM: EOMs intact bilaterally Neck: Neck: supple Resp: Effort & Inspection: normal respiratory effort Auscultation: clear to auscultation bilaterally Cardio: Rate: regular rate Rhythm: regular rhythm Skin: General skin exam: normal color and no rashes or lesions noted Wounds: no wounds Other: left upper arm fistula Neuro: Speech: normal speech Sensory Exam: normal sensation Extrem: General: normal to inspection Psych: Mental Status: mental status grossly normal Affect: normal affect Objective Data Vital Signs Vital Signs: Vital Signs - 24 hr 05/30/23 16:39 05/30/23 16:52 05/30/23 19:47 Temperature 102 F H Pulse Rate 103 H 105 H 93 Respiratory Rate 37 H Blood Pressure 161/57 H Pulse Oximetry 97 Oxygen Delivery Room Air 05/30/23 19:48 05/30/23 21:00 05/30/23 21:26 Temperature 99.4 F Pulse Rate 91 90 90 Respiratory Rate 26 H 27 H 25 H Blood Pressure 145/45 H 151/41 H 168/82 H Pulse Oximetry 96 93 94 Oxygen Delivery 05/30/23 21:55 05/30/23 22:00 05/30/23 22:00 Temperature 98.3 F Pulse Rate 96 93 Respiratory Rate 18 Blood Pressure 128/56 L Pulse Oximetry 97 Oxygen Delivery Room Air 05/30/23 23:53 05/31/23 00:00 05/31/23 00:00 Temperature 97.7 F Pulse Rate 93 91 Respiratory Rate 16 Blood Pressure 139/46 L Pulse Oximetry 96 Oxygen Delivery Room Air 05/31/23 03:49 05/31/23 04:00 05/31/23 04:00 Temperature 96.9 F L Pulse Rate
[2023-05-31] MEDS: EPOETIN ALFA-EPBX 10,000 UNITS/ML VIAL 10000 UNITS IV PUSH (17:37)
[2023-05-31 18:39] LABS: Glucose Point of Care 129 mg/dl (65-105)
[2023-05-31] MEDS: CEFEPIME 1 GM/NS 50 ML 1 GM/50 ML BAG IVPB (18:43)
[2023-05-31 20:47] LABS: Glucose Point of Care 163 mg/dl (65-105)
[2023-05-31] MEDS: INSULIN GLARGINE (*BKC) 100 UNITS/ML 10 UNITS SUB-Q (21:01)
[2023-05-31] MEDS: TACROLIMUS 0.5 MG CAPSULE 2 MG PO (21:06)
[2023-06-01] VITALS (21 sets, daily range): BP systolic 150–176; BP diastolic 47–75; PULSE 74–87; RESP 14–20; TEMP 36–37; O2SAT 97–100
[2023-06-01 05:26] LABS: Basophils Percent Auto 0.2 % (0.2-1.2); Eosinophils Absolute Auto 0.1 K/mm3 (0-0.3); Eosinophils Percent Auto 1.1 % (0-4.4); Hematocrit 24.5 % (37.0-47.0); Hemoglobin 7.1 g/dL (12.0-15.0); Immature Granulocyte Absolute 0.06 K/mm3 (0.00-0.031); Immature Granulocyte Percent A 0.7 % (0-0.5); Immature Platelet Fraction Pct 14.9 % (0.9-11.2); Lymphocytes Absolute Auto 1.58 K/mm3 (0.9-3.2); Lymphocytes Percent Auto 18.7 % (18.3-44.2); Mean Corpuscular Hemoglobin 18.6 pg (26-34); Mean Corpuscular Volume 64.1 fl (80-100); Monocytes Absolute Auto 0.5 K/mm3 (0.1-0.6); Monocytes Percent Auto 5.7 % (2.6-8.5); Neutrophils Absolute Auto 6.2 K/mm3 (1.3-6.7); Neutrophils Percent Auto 73.6 % (45.5-73.1); Platelet Count Result 110 k/mm3 (150-375); Red Blood Count 3.82 M/mm3 (4.2-5.4); Red Cell Distribution Width 17.8 % (11.5-14.5); White Blood Count 8.5 K/mm3 (4.5-10.0)
[2023-06-01 05:30] LABS: Lactic Acid Reflex 0.8 mmol/L (0.7-2.0)
[2023-06-01 05:32] LABS: Albumin Level 3.2 g/dL (3.5-5.1); Anion Gap 10 mmol/L (8-16); Blood Urea Nitrogen 28 mg/dL (7-17); Calcium 8.2 mg/dL (8.4-10.2); Carbon Dioxide 26 mmol/L (22-30); Chloride 100 mmol/L (98-107); Estimated CRCL calculation 14 ml/min; Estimated Glomerular Filt Rate 11; Glucose 133 mg/dL (65-110); Phosphorus 3.8 mg/dL (2.5-4.5); Potassium 3.5 mmol/L (3.4-5.0); Sodium 136 mmol/L (137-145)
[2023-06-01 05:59] LABS: Poikilocytosis 1+ (NORMAL); Schistocytes Rare (NORMAL)
[2023-06-01 08:33] LABS: Glucose Point of Care 124 mg/dl (65-105)
[2023-06-01] MEDS: EPOETIN ALFA-EPBX 10,000 UNITS/ML VIAL 10000 UNITS IV PUSH (10:03)
[2023-06-01] MEDS: SODIUM CHLORIDE 0.9% IV 1,000 ML 999 ML IV CONT (10:04)
--- NOTE | 2023-06-01 10:15 | PM.PNNEP ---
Progress Note: A&P Assessment and Plan (1) End stage renal disease: Code(s): N18.6 - End stage renal disease Status: Chronic Assessment and Plan: HD today HD yesterday follow electrolytes, volume status, and clearance normally does home hemodialysis (2) Pneumonia: Qualifiers: Laterality: right Lung location: middle lobe of lung Pneumonia type: due to unspecified organism Qualified Code(s): J18.9 - Pneumonia, unspecified organism Code(s): J18.9 - Pneumonia, unspecified organism Status: Acute Assessment and Plan: as suggested by admission imaging follow culture data on antibiotic therapy follow respiratroy status (3) Volume overload: Code(s): E87.70 - Fluid overload, unspecified Status: Acute Assessment and Plan: also noted by admission imaging fluid removal with dialysis to compensate (4) Anemia: Code(s): D64.9 - Anemia, unspecified Status: Chronic Assessment and Plan: related to ESRD and worsened by acute illness Epogen iwth HD today follow H/H (5) Liver transplant recipient: Code(s): Z94.4 - Liver transplant status Status: Chronic Assessment and Plan: continue home immunosuppressant therapy Will continue to follow Subjective Date/time seen: 06/01/23 10:15 Interval history: Follow-up for end stage renal disease on home hemodialysis. Tolerated dialysis treatment yesterday and tolerating dialysis treatment at this time (seen on HD at 10:05AM); feels significantly better currently; no issues/events overnight or earlier this morning. Exam Narrative: General: WD/WN female in NAD Heart: normal S1 and S2; no rub Lungs: clear anteriorly, decreased breath sounds at bases Abdomen: soft, nontender, nondistended, positive bowel sounds Extremities: no cyanosis or clubbing; no edema Skin: warm and dry Objective Data Vital Signs Vital Signs: Vital Signs Temp Pulse Resp BP Pulse Ox O2 Del Method 06/01/23 10:10 80 176/72 H 06/01/23 09:50 81 158/73 H 06/01/23 09:30 78 170/69 H 06/01/23 09:10 76 156/65 H 06/01/23 08:15 85 163/74 H 06/01/23 08:50 82 152/72 H 06/01/23 08:30 81 161/75 H 06/01/23 07:57 97.7 F 85 16 171/67 H 06/01/23 08:04 82 173/62 H 06/01/23 07:35 97.5 F L 79 18 157/52 H 98 06/01/23 06:00 74 06/01/23 04:00 81 06/01/23 04:00 Room Air 06/01/23 04:00 97.1 F L 80 16 154/60 H 98 06/01/23 02:00 83 06/01/23 00:00 83 05/31/23 22:00 85 05/31/23 20:00 83 06/01/23 00:00 Room Air 05/31/23 20:00 Room Air 06/01/23 00:00 97 F L 82 16 150/47 H 97 05/31/23 21:02 85 05/31/23 20:00 97.6 F 85 16 146/46 H 98 05/31/23 18:36 98.1 F 84 20 152/43 H 96 05/31/23 16:00 94 Room Air 05/31/23 18:00 84 05/31/23 16:00 79 05/31/23 18:04 81 144/56 H 05/31/23 17:45 77 141/54 H 05/31/23 17:30 80 146/55 H 05/31/23 17:15 80 121/64 05/31/23 17:00 81 141/52 H 05/31/23 16:45 77 130/48 L 05/31/23 16:30 78 128/52 L 05/31/23 16:15 79 126/46 L 05/31/23 16:00 80 123/45 L 05/31/23 15:45 78 127/55 L 05/31/23 15:30 76 125/53 L 05/31/23 18:40 99 F 82 16 145/50 H Intake/Output Intake/Output: Intake & Output 05/29/23 05/30/23 05/31/23 06/01/23 23:59 23:59 23:59 23:59 Intake Total 1600 930 890 Output Total 1200 Balance 1600 -270 890 Meds/Results Medications: Active Medications Generic Name Dose Route Start Last Admin Trade Name Freq PRN Reason Stop Dose Admin Calcium Acetate 667 mg 05/31/23 09:00 05/31/23 18:43 Calcium Acetate 667 Mg Tablet PO 667 mg TID REUBEN Administration Carvedilol 12.5 mg 05/31/23 09:00 05/31/23 21:02 Carvedilol 12.5 Mg Tablet PO 12.5 mg Q12HR REUBEN Adminis
[2023-06-01 11:53] LABS: Glucose Point of Care 122 mg/dl (65-105)
[2023-06-01] MEDS: IRBESARTAN 150 MG TABLET 300 MG PO (12:50)
[2023-06-01] MEDS: carvediloL 12.5 MG TABLET PO (12:51)
[2023-06-01] MEDS: CALCIUM ACETATE 667 MG TABLET PO (12:51)
[2023-06-01] MEDS: SERTRALINE HCL 25 MG TABLET PO (12:51)
[2023-06-01] MEDS: TACROLIMUS 0.5 MG CAPSULE 1 MG PO (12:51)
[2023-06-01] MEDS: FLUTICASONE PROPIONATE 0.05% NA SPR 16 GM BTL (*BKC) 1 SPRAY NASAL (12:52)
--- NOTE | 2023-06-01 15:17 | PM.DS ---
DS: Admitting Diagnosis Discharge Date 06/01/23 Admitting Diagnosis weakness DS: Discharge Diagnosis Discharge Diagnosis (1) Sepsis: Qualifiers: Sepsis acute organ dysfunction status: unspecified Sepsis type: sepsis due to unspecified organism Qualified Code(s): A41.9 - Sepsis, unspecified organism Code(s): A41.9 - Sepsis, unspecified organism Status: Acute Assessment and Plan: likely source to be pneumonia continue PO Augmentin BC pending, no growth to date UA culture pending supportive care continue to monitor (2) Pneumonia: Qualifiers: Laterality: right Lung location: middle lobe of lung Pneumonia type: due to unspecified organism Qualified Code(s): J18.9 - Pneumonia, unspecified organism Code(s): J18.9 - Pneumonia, unspecified organism Status: Acute Assessment and Plan: CXR showed Cardiomegaly, congestive heart failure. Patchy consolidation, right mid to upper lung; differential diagnosis includes pulmonary edema, pneumonia. Right dialysis catheter tip overlying right atrium continue PO Augmentin at d/c respiratory panel negative (3) Lactic acidosis: Code(s): E87.20 - Acidosis, unspecified Status: Resolved Assessment and Plan: repeat 0.8 today (4) CKD (chronic kidney disease) requiring chronic dialysis: Code(s): N18.6 - End stage renal disease; Z99.2 - Dependence on renal dialysis Status: Chronic Assessment and Plan: creatinine 4.10, eGFR 11 this am continue dialysis - on T/W/F/S schedule this week nephrology consulted - dialysis here yesterday and this morning (5) Liver transplant recipient: Code(s): Z94.4 - Liver transplant status Status: Chronic Assessment and Plan: continue tacrolimus DS: Summary Hospital Course Hospital Course: Patient is a 62 YO female with PMH of end-stage renal disease on hemodialysis, hypertension, insulin-dependent diabetes mellitus, liver transplant on chronic immunosuppressive therapy. She was admitted for nausea, vomiting for 2 days, generalized weakness, Patient dialyzes 4 times a week, she was on a T/W/F/S schedule this week. Nephrology consulted. Preliminary workup was significant for patchy infiltrates of the lungs. Respiratory panel was negative. UA culture pending, BC pending showing no growth to date. Will d/c on Augmentin renally dosed. Patient feeling better today, reporting continued cough as only complaint. Discussed use of incentive spirometer at home, but she is medically stable for d/c She is not requiring oxygen. Lungs are diminished but clear. Follow up with culture results and PCP to ensure infection resolved in 1-2 weeks. Status at Discharge Functional status at discharge: independent ambulation Overall status at discharge: patient is progressing back to baseline Time Spent with Patient Time attestation: Total time spent providing and/or coordinating discharge services: Exam Const: General: no acute distress HENMT: Mouth: Yes moist mucous membranes Eyes: Pupils: Equal, round and reactive pupils present EOM: EOMs intact bilaterally Neck: Neck: supple Resp: Effort & Inspection: normal respiratory effort Auscultation: clear to auscultation bilaterally and diminished lung sounds Cardio: Rate: regular rate Rhythm: regular rhythm Skin: General skin exam: normal color and no rashes or lesions noted Wounds: no wounds Other: left upper arm fistula Neuro: Cranial nerves: Yes Equal, round and reactive pupils present Speech: normal speech Sensory Exam: normal sensation Extrem: General: normal to inspection Psych: Mental Status: mental status grossly normal Affect: normal affect DS: Data Data Completed and Pending Labs on day of discharge: Labs from last 24 hours 06/01/23 06/01/23 06/01/23 11:48 07:35 04:27 WBC 8.5 RBC 3.82 L Hgb 7.1 L Hct 24.5 L MCV 64.1 L MCH
--- NOTE | 2023-06-05 10:33 | PC.NURSE ---
Blood cultures are negative.
== END 2023-06-01 15:30 | disposition home or self-care (01) | DRG 871 ==
LOC: ANHED 17:02 → ANHIMU 21:17
PROVIDERS: Emergency Medicine; Internal Medicine Nephrology; Admitting Provider Internal Medicine; Emergency Provider Physician Assistant; PCP Internal Medicine; Visit Provider Nurse Practitioner
DX: A41.9 Sepsis, unspecified organism (principal); J18.9 Pneumonia, unspecified organism; N18.6 End stage renal disease; E87.20 Acidosis, unspecified; Z94.4 Liver transplant status; I12.0 Hypertensive chronic kidney disease with stage 5 chronic kidney disease or end stage renal disease; D63.1 Anemia in chronic kidney disease; E83.42 Hypomagnesemia; E11.22 Type 2 diabetes mellitus with diabetic chronic kidney disease; F41.8 Other specified anxiety disorders; K21.9 Gastro-esophageal reflux disease without esophagitis; M81.0 Age-related osteoporosis without current pathological fracture; Z20.822 Contact with and (suspected) exposure to COVID-19; Z90.49 Acquired absence of other specified parts of digestive tract; Z99.2 Dependence on renal dialysis; Z79.4 Long term (current) use of insulin; Z79.60 Long term (current) use of unspecified immunomodulators and immunosuppressants
CPT/HCPCS: 36415; 71045; 74176; 80053; 80069; 81001; 82565; 82948; 83605; 83690; 83735; 83880; 84484; 85025; 85055; 85610; 85730; 86706; 87040; 87086; 87340; 87637; 87641; 93005; 96365; 96367; 96368; 96375; 99285; A9270; G0257; G0378; J0692; J1644; J1815; J1885; J2405; J3370; J3475; J7030; P9047; Q5105

== ENCOUNTER → 2023-06-13 13:51 | Outpatient (CLI) | payer MEDICARE, OTHER, SELFPAY ==
--- NOTE | ~2023-06-13 | XR_ITS ---
XR chest 2V DATE: 06/13/2023 14:26 INDICATION: Pneumonia 3 weeks ago. Lower right chest pain TECHNIQUE: 2 views COMPARISON: 05/30/2023 portable AP chest FINDINGS: There is incomplete resolution but considerable interval improvement of right upper lobe co nsolidation since 05/30/2023. There is mild right pleural effusion and right basilar infiltrate or atelectasis. The pleural effusio n is new since 05/30/2023. The left lung is clear. No left pleural effusion is noted. Heart size appears within upper normal range. Aortic arch calcification. Right sided dialysis catheter, distal tip overlying upper right atrium. No pneumothorax. Diffuse osteopenia. IMPRESSION: New right pleural effusion and right basilar infiltrate or atelectasis since 05/30/2023 Considerable interval improvement of right upper lobe consolidation since 05/30/2023 Reviewed, dictated and finalized at location L. 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
== END ==
PROVIDERS: PCP Internal Medicine Nephrology; Visit Provider Nurse Practitioner
DX: J18.9 Pneumonia, unspecified organism (principal); J90 Pleural effusion, not elsewhere classified
CPT/HCPCS: 71046

== ENCOUNTER 2024-05-21 11:06 | Emergency (ER) | payer MEDICARE, OTHER, SELFPAY ==
[2024-05-21] VITALS (10 sets, daily range): BP systolic 144–189; BP diastolic 47–70; PULSE 66–76; RESP 11–100; TEMP 36.7; O2SAT 14–100
[2024-05-21 11:30] LABS: Basophils Percent Auto 0.5 % (0.2-1.2); Eosinophils Absolute Auto 0.2 K/mm3 (0-0.3); Eosinophils Percent Auto 3.6 % (0-4.4); Hematocrit 33.8 % (37.0-47.0); Immature Granulocyte Absolute 0.04 K/mm3 (0.00-0.031); Immature Granulocyte Percent A 0.6 % (0-0.5); Immature Platelet Fraction Pct 6.7 % (0.9-11.2); Lymphocytes Absolute Auto 1.61 K/mm3 (0.9-3.2); Lymphocytes Percent Auto 25.1 % (18.3-44.2); Mean Corpuscular HGB Conc 29.6 g/dl (32-36); Mean Corpuscular Hemoglobin 18.9 pg (26-34); Monocytes Absolute Auto 0.3 K/mm3 (0.1-0.6); Monocytes Percent Auto 5.1 % (2.6-8.5); Neutrophils Absolute Auto 4.2 K/mm3 (1.3-6.7); Neutrophils Percent Auto 65.1 % (45.5-73.1); Platelet Count Result 151 k/mm3 (150-375); Red Blood Count 5.28 M/mm3 (4.2-5.4); Red Cell Distribution Width 17.9 % (11.5-14.5); White Blood Count 6.4 K/mm3 (4.5-10.0)
[2024-05-21 11:42] LABS: Alanine Aminotransferase 11 U/L (6-35); Albumin Level 4.1 g/dL (3.5-5.1); Alkaline Phosphatase 46 U/L (38-126); Anion Gap 7 mmol/L (4-12); Aspartate Amino Transferase 22 U/L (14-36); Bilirubin,Total 0.6 mg/dL (0.2-1.3); Blood Urea Nitrogen 62 mg/dL (7-17); Calcium 8.4 mg/dL (8.4-10.2); Carbon Dioxide 25 mmol/L (22-30); Chloride 106 mmol/L (98-107); Estimated CRCL calculation 8 ml/min; Estimated Glomerular Filt Rate 6; Glucose 198 mg/dL (65-110); Sodium 138 mmol/L (137-145)
[2024-05-21 12:31] LABS: Anisocytosis 1+; Hypochromasia 2+; Microcytosis 1+ (NORMAL); Platelet Estimate Adequate (Adequate); Schistocytes None Seen
[2024-05-21 12:32] LABS: Ovalocytes 1+
--- NOTE | 2024-05-21 12:52 | ED_ITS ---
HPI - Allergic Reaction General Chief complaint: Allergic Reaction Stated complaint: allergic rxn Time Seen by Provider: 05/21/24 12:13 Source: patient History of Present Illness HPI narrative: 63 years old white female went to dialysis this morning at 9:30 a.m. few minutes later started having itching all over, swollen lips, hard to swallow. Received 2 tablets of Benadryl prior to arrival. History of allergy to adhesive tapes, clindamycin, and elastic bands around the waist. Patient denies any fever, chills, nausea, vomiting, shortness of breath, chest pain or back pain or headache. Patient denies having similar symptoms in the past Patient started on lisinopril 5 days ago for hypertension last intake was last night. Patient reports her symptoms are improving compared to early today Related Data Home Medications ?Medication ?Instructions ?Recorded ?Confirmed ?Last Taken ?Type tacrolimus 1 mg capsule, 1 mg PO QAM 10/02/21 03/05/24 Unknown History immediate-release blood-glucose sensor (Dexcom G6 10/05/21 03/05/24 Unknown History Sensor device) blood-glucose transmitter (Dexcom 10/05/21 03/05/24 Unknown History G6 Transmitter device) insulin lispro 100 unit/mL 1 sliding scale dose subcut 10/05/21 03/05/24 Unknown History subcutaneous pen USEASDIRECTD pen needle, diabetic 32 gauge x 10/05/21 03/05/24 Unknown History (Pen Needle) calcium acetate(phosphat bind) 667 667 mg PO TID 10/03/22 03/05/24 Unknown History mg capsule insulin glargine 100 unit/mL (3 See Rx Instructions subcut DAILY 10/03/22 03/05/24 Unknown History mL) subcutaneous pen (Basaglar KwikPen U-100 Insulin) tacrolimus 1 mg capsule, 2 mg PO HS 05/30/23 03/05/24 Unknown History immediate-release mycophenolate sodium 360 mg 360 mg PO Q12H 05/31/23 03/05/24 Unknown History tablet,delayed release (Myfortic) carvedilol 12.5 mg tablet 25 mg PO BID 06/13/23 03/05/24 Unknown History Allergies Allergy/AdvReac Type Severity Reaction Status Date / Time Sulfa (Sulfonamide Allergy Intermediate Rash Verified 05/21/24 11:17 Antibiotics) adhesive tape Allergy Mild rash Verified 05/21/24 11:17 amlodipine Allergy Unknown Unknown Verified 05/21/24 11:17 clindamycin Allergy Unknown Rash Verified 05/21/24 11:17 Review of Systems 2 Review of Systems: All systems reviewed & are unremarkable except as noted in HPI and below PMFSH Past Medical History Medical History Depression with anxiety CMV (cytomegalovirus infection) Liver transplant planned October 24, 2019 Olecranon bursitis, left elbow Broken arm Left humerus bone March 2019 Encounter for blood transfusion 2019 Gastritis Vertigo Osteoporosis Allergies Heart murmur Fracture of proximal end of left humerus (04/04/19) Anemia Cirrhosis DM (diabetes mellitus) UTI (urinary tract infection) Abnormal uterine bleeding Endometriosis GI bleed GERD (gastroesophageal reflux disease) Pancreatitis Pneumonia History of pleurisy Hypertension Surgical History Surgical History Status post creation of arteriovenous fistula Status post biopsy of kidney Previous section x2 History of cholecystectomy Family History Family History Mother Family history of malignant neoplasm of stomach Anemia Macular degeneration Father Bone tumor Liver cirrhosis Social History Social History Social History: Caffeine-soda Smoking status: Never smoker Alcohol intake: never Substance use: never Substance use type: does not use Do You Feel Safe in your Home?: Yes Lack of Transportation: No Lack of Food: Never True Current Housing: I Have Housing Concerned About Future Housing: No Difficulty Paying Gas/Electric Bills: No Difficulty Paying for Meds: No Currently Unemployed: No Education: High School Diploma/GED Difficulty w/ Childcare or Family Care: No Gender identity (if verbalized by the patient): Female Spiritual care concerns: No Exam 2 Narrative: General appearance: Well-developed, well-nourished Skin: Normal color Head: Normocephalic, nontraumatic Eyes: Clear conjunctiva ENT: Oropharynx normal, ears normal, nose normal , swollen lips Neck: Supple, nontender Chest and respiratory: Airway patent, no respiratory distress, no accessory muscle use Heart: Regular rate/rhythm Abdomen: Soft, nontender, no organomegaly, quiet bowel sounds Vascular: Normal peripheral pulses, normal capillary refill. Musculoskeletal: Normal range of motion, nontender back Neurologic: Alert and oriented ?3, PRODUCT/DEVICE TECHNOLOGIST is normal as tested, no gross motor deficit Course Vital Signs Vital signs: Vital Signs Temperature 36.7 C 05/21/24 11:10 Pulse Rate 75 05/21/24 11:10 Respiratory Rate 17 05/21/24 11:10 Blood Pressure 178/65 H 05/21/24 11:10 Pulse Oximetry 100 05/21/24 11:10 Oxygen Delivery Room Air 05/21/24 11:10 Temperature 36.7 C 05/21/24 11:10 Pulse Rate 72 05/21/24 15:02 Respiratory Rate 16 05/21/24 15:02 Blood Pressure 181/57 H 05/21/24 15:02 Pulse Oximetry 100 05/21/24 15:02 Oxygen Delivery Room Air 05/21/24 11:20 MDM - Allergic Reaction MDM Narrative Medical decision making narrative: patient came to the ED with Drea lopez like symptoms started on lisinopril 5 days ago. Vital signs showing blood pressure 178/65 otherwise within normal limit Physical examination consistent with swollen lips generalized itching without rash Differential diagnosis and edema secondary to PARTH inhibitor is my concern. Patient's symptoms resolved roughly 80% after receiving Solu-Medrol 125 mg IV, epinephrine 0.3, 0.3 and 0.5 IM. The pt was discharged to home.the pt,s condition upon discharge was fair,education was provided to the pt in reference to the final impression,discharge study results,treatment,prognosis and need for follow up . Differential Diagnosis Differential diagnosis: Likely other ( As above) Lab Data 05/21/24 11:21 05/21/24 11:21 Labs: Lab Results 05/21/24 Range/Units 11:21 WBC 6.4 (4.5-10.0) K/mm3 RBC 5.28 (4.2-5.4) M/mm3 Hgb 10.0 L (12.0-15.0) g/dL Hct 33.8 L (37.0-47.0) % MCV 64.0 L (80-100) fl MCH 18.9 L (26-34) pg MCHC 29.6 L (32-36) g/dl RDW 17.9 H (11.5-14.5) % Plt Count 151 (150-375) k/mm3 MPV TNP Immature Gran % (Auto) 0.6 H (0-0.5) % Neut % (Auto) 65.1 (45.5-73.1) % Lymph % (Auto) 25.1 (18.3-44.2) % Perry % (Auto) 5.1 (2.6-8.5) % Eos % (Auto) 3.6 (0-4.4) % Baso % (Auto) 0.5 (0.2-1.2) % Lymph # (Auto) 1.61 (0.9-3.2) K/mm3 Perry # (Auto) 0.3 (0.1-0.6) K/mm3 Eos # (Auto) 0.2 (0-0.3) K/mm3 Baso # (Auto) 0.0 (0.0-0.1) K/mm3 Abs Immat Gran (auto) 0.04 H (0.00-0.031) K/mm3 Absolute Neuts (auto) 4.2 (1.3-6.7) K/mm3 Absolute Nucleated RBC 0.000 (0.0-0.012) K/mm3 Nucleated RBC % 0.0 (0.0-0.2) % Platelet Estimate Adequate (Adequate) % Immature Plt Fraction 6.7 (0.9-11.2) % Hypochromasia 2+ Anisocytosis 1+ Microcytosis 1+ (NORMAL) Ovalocytes 1+ Schistocytes None seen Sodium 138 (137-145) mmol/L Potassium 4.0 (3.4-5.0) mmol/L Chloride 106 (98-107) mmol/L Carbon Dioxide 25 (22-30) mmol/L Anion Gap 7 (4-12) mmol/L BUN 62 H D (7-17) mg/dL Creatinine 7.40 H (0.7-1.0) mg/dL Estim Creat Clear Calc 8 ml/min Estimated GFR 6 L (59 - ) Glucose 198 H (65-110) mg/dL Calcium 8.4 (8.4-10.2) mg/dL Total Bilirubin 0.6 (0.2-1.3) mg/dL AST 22 (14-36) U/L ALT 11 (6-35) U/L Alkaline Phosphatase 46 (38-126) U/L Total Protein 7.0 (6.3-8.2) g/dL Albumin 4.1 (3.5-5.1) g/dL Discharge Plan Discharge Clinical Impression: [id number] Patient Disposition: Home, Self-Care Condition: Stable Instructions: Angioedema (ED) Additional Instructions: do not take lisinopril Contact your refinery technician for further management Return if symptoms are worsening , call your family physician for appointment, take Tylenol as as needed for aches and pain, continue home medications. Patient Language: Hong [place]er Prescriptions: No Action (DME) Dexcom G6 Sensor Device See Rx Instructions .Route Rx Instructions: As directed 1 sensor every 10 days 1 box = 3 sensors (DME) Dexcom G6 Transmitter Device See Rx Instructions .Route Rx Instructions: As directed Change every 90 days insulin lispro 100 unit/mL insulin pen 1 sliding scale dose subcut USEASDIRECTD Rx Instructions: per patient SS (DME) pen needle, diabetic [Pen Needle] 32 gauge x 5/32 needle See Rx Instructions .Route Rx Instructions: As directed TID insulin glargine [Basaglar KwikPen U-100 Insulin] 100 unit/mL (3 mL) insulin pen See Rx Instructions SUBCUT DAILY Rx Instructions: 12 units in the am and 10 units in the pm subcutaneously daily; calcium acetate(phosphat bind) 667 mg capsule 667 mg PO TID Rx Instructions: with meals prednisone 10 mg tablet 10 mg PO BID Qty: 10 0RF tacrolimus 1 mg Capsule 2 mg PO HS mycophenolate sodium [Myfortic] 360 mg Tablet,Delayed Release (Dr/Ec) 360 mg PO Q12H carvedilol 12.5 mg tablet 25 mg PO BID tacrolimus 1 mg capsule 1 mg PO QAM fluticasone propionate [Flonase Allergy Relief] 50 mcg/actuation spray,suspension 1 spray intranasal BID Qty: 16 2RF Rx Instructions: administer into each nostril sertraline 25 mg tablet 25 mg PO DAILY Qty: 90 3RF albuterol sulfate 90 mcg/actuation HFA aerosol inhaler 1 inh inhalation Q4H PRN (Reason: shortness of breath or wheezing) Qty: 18 1RF Follow-up/Referrals: Herman Larson, [Primary Care Provider] -
[2024-05-21] MEDS: EPINEPHrine HCL INJ 1 MG/ML AMPUL 0.3 MG IM ×2 (13:27→14:27)
[2024-05-21] MEDS: methylPREDNISolone SOD SUCC 125 MG VIAL IV PUSH (13:29)
[2024-05-21] MEDS: EPINEPHrine HCL INJ 1 MG/ML AMPUL 0.5 MG IM (15:00)
== END 2024-05-21 16:49 | disposition home or self-care (01) ==
PROVIDERS: Emergency Medicine; Emergency Provider Emergency Medicine; PCP Internal Medicine
DX: T78.3XXA Angioneurotic edema, initial encounter (principal); F41.9 Anxiety disorder, unspecified; F32.A Depression, unspecified; E11.9 Type 2 diabetes mellitus without complications; Z79.4 Long term (current) use of insulin; K21.9 Gastro-esophageal reflux disease without esophagitis; I10 Essential (primary) hypertension; Z87.440 Personal history of urinary (tract) infections; X58.XXXA Exposure to other specified factors, initial encounter
CPT/HCPCS: 36415; 80053; 85025; 85055; 96372; 96374; 99284; J0171; J2919

== ENCOUNTER 2024-10-21 17:13 | Emergency (ER) | payer MEDICARE, OTHER, SELFPAY ==
--- NOTE | ~2024-10-21 | XR_ITS ---
XR knee RT min 4V Ordering provider: Anders Duarte APRN History: . r knee swelling . Comparison: None. FINDINGS: BONES: No acute fracture or dislocation. JOINT SPACES: Marginal osteophytes seen in the knee and patella which may indicate early osteoarthrit ic changes. SOFT TISSUES: Soft tissue swelling over the lateral aspect which may indicate effusion or hematoma. IMPRESSION: No acute osseous abnormality right knee. Mild osteoarthritic changes. Soft tissue swelling seen laterally which may indicate effusion or hematoma. Reviewed, dictated and finalized at location A.
--- NOTE | ~2024-10-21 | XR_ITS ---
XR hand LT min 3V Ordering provider: Anders Duarte APRN History: . fall, left thumb injury . Comparison: None. FINDINGS: BONES: No acute fracture or dislocation. Osteopenia of the bones. JOINT SPACES: Narrowing of the proximal and distal interphalangeal joints. Osteoarthritic changes of the first carpometacarpal joint.. No erosion seen. SOFT TISSUES: Unremarkable. IMPRESSION: No acute osseous abnormality left hand. Osteopenia of the bones. Narrowing of the proximal and distal interphalangeal joints may indicate polyarticular osteoarthritic changes. Osteoarthritic changes of the first carpometacarpal joint. Reviewed, dictated and finalized at location A. IMPRESSION: No acute osseous abnormality left hand. Osteopenia of the bones. Narrowing of the proximal and distal interphalangeal joints may indicate polyar ticular osteoarthritic changes. Osteoarthritic changes of the first carpometacarpal joint.
[2024-10-21 17:25] VITALS: BP 138/62; PULSE 74; RESP 16; TEMP 36.4; O2SAT 100
--- NOTE | 2024-10-21 17:40 | ECG_ITS ---
Test Date: 2024-10-21 18:02:02 Measurements Intervals [place] Rate: 73 P: 25 ID: [id number] QRS: -16 QRSD: 89 T: 32 QT: 411 QTc: 454 Interpretive Statements SINUS RHYTHM MODERATE VOLTAGE CRITERIA FOR LVH, CONSIDER NORMAL VARIANT [MEETS CRITERIA IN ONE OF: R(aVL), S(V1), R(V5), R(V5/V6)+S(V1)] NONSPECIFIC T-WAVE ABNORMALITY No previous ECG available for comparison Electronically Signed On 10-22-2024 15:15:04 CDT by Clark Rincon M.D.
--- NOTE | 2024-10-21 17:48 | ED.UPPEXIN ---
HPI - Extremity Injury (Upper) General Chief Complaint: Extremity Injury, Upper Stated Complaint: INJURED L THUMB Source: patient, family and RN notes reviewed Mode of arrival: ambulatory Limitations: no limitations History of Present Illness HPI narrative: 64-year-old female presents Express Care with spouse complaining of left thumb injury. Patient reported approximately 2 days ago a syncopal episode while using the restroom she felt like she was going to vomit and fell off the toilet shortly after. Patient does not remember the event. Patient denies any injury to her head, neck pain, back pain. Patient does report that she is having left thumb pain and swelling along with right knee pain swelling. Patient denies any history of syncopal episodes. She does have a history of cirrhosis is on a transplant list. Patient said she has recently been extremely dehydrated and had poor appetite lately due to dealing with multiple infections over the last month. Patient denies any chest pain, shortness of breath, lightheaded, dizziness, headaches, vision changes, black or tarry stools, or any other symptoms currently. Paces event was witnessed by has been. Patient not go to the hospital after the event. Related Data Home Medications ?Medication ?Instructions ?Recorded ?Confirmed ?Last Taken ?Type tacrolimus 1 mg capsule, 1 mg PO QAM 10/02/21 10/01/24 Unknown History immediate-release blood-glucose sensor (Dexcom G6 10/05/21 10/01/24 Unknown History Sensor device) blood-glucose transmitter (Dexcom 10/05/21 10/01/24 Unknown History G6 Transmitter device) insulin lispro 100 unit/mL 1 sliding scale dose subcut 10/05/21 10/01/24 Unknown History subcutaneous pen USEASDIRECTD pen needle, diabetic 32 gauge x 10/05/21 10/01/24 Unknown History (Pen Needle) calcium acetate(phosphat bind) 667 667 mg PO TID 10/03/22 10/01/24 Unknown History mg capsule tacrolimus 1 mg capsule, 2 mg PO HS 05/30/23 10/01/24 Unknown History immediate-release mycophenolate sodium 360 mg 360 mg PO Q12H 05/31/23 10/01/24 Unknown History tablet,delayed release (Myfortic) carvedilol 12.5 mg tablet 25 mg PO BID 06/13/23 10/01/24 Unknown History insulin glargine 100 unit/mL (3 25 unit subcut DAILY 10/01/24 10/01/24 Unknown History mL) subcutaneous pen (Basaglar KwikPen U-100 Insulin) estradiol 0.01% (0.1 mg/gram) vaginal 10/21/24 Unknown History vaginal cream fluconazole 100 mg tablet mg 10/21/24 Unknown History Allergies Allergy/AdvReac Type Severity Reaction Status Date / Time Sulfa (Sulfonamide Allergy Intermediate Rash Verified 10/21/24 17:16 Antibiotics) adhesive tape Allergy Mild rash Verified 10/21/24 17:16 amlodipine Allergy Unknown Unknown Verified 10/21/24 17:16 clindamycin Allergy Unknown Rash Verified 10/21/24 17:16 lisinopril Allergy Rash Verified 10/21/24 17:16 Review of Systems Review of Systems: CONSTITUTIONAL: Denies fever, chills, or sweats. EYES: Denies visual changes, blurry vision, redness, or discharge. ENT: Denies rhinorrhea, congestion, sore throat, or otalgia. CARDIOVASCULAR: Denies chest pain, palpitations, or edema. Positive for syncope. RESPIRATORY: Denies cough or dyspnea. GASTROINTESTINAL: Denies abdominal pain, nausea, vomiting, or diarrhea. GENITOURINARY: Denies dysuria or hematuria. SKIN: Denies rash or itching. MUSCULOSKELETAL: Denies back pain, joint pain, or myalgia. Positive for left thumb injury and right knee injury NEUROLOGIC: Denies headache, numbness, or weakness. PSYCHIATRIC: Denies anxiety or depression. All other systems reviewed are negative, except as documented in HPI. [facility] Past Medical History Medical History Depression with anxiety CMV (cytomegalovirus infection) Liver transplant planned October 24, 2019 Olecranon bursitis, left elbow Broken arm Left humerus bone March 2019 Encounter for blood transfusion 2019 Gastritis Vertigo Osteoporosis Allergies Heart murmur Fracture of proximal end of left humerus (04/04/19) Anemia Cirrhosis DM (diabetes mellitus) UTI (urinary tract infection) Abnormal uterine bleeding Endometriosis GI bleed GERD (gastroesophageal reflux disease) Pancreatitis Pneumonia History of pleurisy Hypertension Surgical History Surgical History History of bladder surgery Status post creation of arteriovenous fistula Status post biopsy of kidney Previous section x2 History of cholecystectomy Family History Family History Mother Family history of malignant neoplasm of stomach Anemia Macular degeneration Father Bone tumor Liver cirrhosis Social History Social History Social History: Caffeine-soda Smoking status: Never smoker Alcohol intake: never Substance use: never Substance use type: does not use Do You Feel Safe in your Home?: Yes Lack of Transportation: No Lack of Food: Never True Current Housing: I Have Housing Concerned About Future Housing: No Difficulty Paying Gas/Electric Bills: No Difficulty Paying for Meds: No Currently Unemployed: No Education: High School Diploma/GED Difficulty w/ Childcare or Family Care: No Gender identity (if verbalized by the patient): Female Spiritual care concerns: No Comments At the time of my signature, I reviewed and agree with the nursing past medical, surgical, social, and family history. There is no relevant family history pertinent to the patient complaint. Exam Narrative: GENERAL: This is a well-nourished, well-developed adult, in no apparent distress. They are non ill-appearing, nontoxic appearing. HEAD: normocephalic, atraumatic. No Mustafa signs or raccoon eyes. EYES: Sclera clear/white. Conjunctiva normal. Vision is grossly intact. Extraocular movements intact pupils. Pupils PERRLA. No nystagmus. EARS: External ears normal, Hearing grossly intact. NOSE: External nose normal THROAT: Mucous membranes moist NECK: Neck supple, non-tender without lymphadenopathy, masses or thyromegaly. No cervical point tenderness, step-offs, crepitus. CARDIOVASCULAR: Regular rate and rhythm without murmurs, gallops, or rubs. RESPIRATORY: Clear to auscultation. Breath sounds equal bilaterally. No wheezes, rales, or rhonchi. SKIN: warm, Dry, intact with no suspicious lesions or rash, good texture and turgor. NEURO: awake, alert, and oriented to person, place and time. There were no obvious focal neurologic abnormalities. EXTREMITIES: Left hand: There is swelling and bruising to the right hand and left thumb. No obvious deformity to hand or thumb. Bruising extends from the proximal and of the lateral hand up into the DIP of the left thumb. There is tenderness to palpation throughout the left thumb. Normal flexion extension of left thumb. Patient is able to flex and extend her thumb against resistance. Patient able to make a fist, okay sign, stop sign, thumbs-up sign. Radial and ulnar nerve distribution intact. Normal sensation. Capillary refill less than 2 seconds. Neurovascular status intact distal injury. Right knee: There is bruising and swelling to the anterior medial part of the knee. Normal flexion and extension of the knee. No pain with movement. Tenderness to palpation near the bruising. No obvious deformity. No valgus or varus laxity. BACK: Nontender without deformity. No CVA tenderness. Course Course Emergency Course: Portions of this record may have been created with voice recognition software Level of Care: Express Care Visit Vital Signs Vital signs: Vital Signs Temperature 97.6 F 10/21/24 17:25 Pulse Rate 74 10/21/24 17:25 Respiratory Rate 16 10/21/24 17:25 Blood Pressure 138/62 10/21/24 17:25 Pulse Oximetry 100 10/21/24 17:25 Temperature 97.6 F 10/21/24 17:25 Pulse Rate 74 10/21/24 17:25 Respiratory Rate 16 10/21/24 17:25 Blood Pressure 138/62 10/21/24 17:25 Pulse Oximetry 100 10/21/24 17:25 Reviewed MDM - Extremity Injury (Upper) MDM Narrative Medical decision making narrative: X-ray showed arthritis changes and osteopenia to the right hand. No evidence of fractures or acute findings. Patient was given Casey wraps her left hand and right knee. EKG was normal sinus rhythm with no ischemic findings, heart blocks, arrhythmias, or any other findings that would cause syncope. No evidence of a significant head injury. Given the patient's syncopal episode it is recommended this patient is a higher level care proceed immediately to the ER for further evaluation management. Patient is refusing to go to the ER and said she will have a close follow-up with her PCP. Patient signed out against medical advice. Patient is alert orient times 4 and has the medical capacity to make decisions for herself. Differential Diagnosis Differential diagnosis: Likely other (Syncopal episode, hand fracture, thumb fracture, knee fracture) Imaging Data Radiologist's impression: ITS Impressions Hand X-Ray 10/21/24 18:17 IMPRESSION: No acute osseous abnormality left hand. Osteopenia of the bones. Narrowing of the proximal and distal interphalangeal joints may indicate polyarticular osteoarthritic changes. Osteoarthritic changes of the first carpometacarpal joint. Knee X-Ray 10/21/24 18:22 IMPRESSION: No acute osseous abnormality right knee. Mild osteoarthritic changes. Soft tissue swelling seen laterally which may indicate effusion or hematoma. ECG Data EKG #1: ECG completion date: 10/21/24 ECG completion time: 18:02 Prior ECG tracings: not available for review EKG Interpretation: normal rate, no ectopy, no ST changes and normal QRS Critical Care Time Critical Care Time Critical Care Time: No Discharge Plan Discharge Clinical Impression: Episode of syncope Qualifiers: Syncope type: unspecified Qualified Code(s): R55 - Syncope and collapse Injury of left thumb Qualifiers: Encounter type: initial encounter Qualified Code(s): S69.92XA - Unspecified injury of left wrist, hand and finger(s), initial encounter Contusion of knee, right Qualifiers: Encounter type: initial encounter Qualified Code(s): S80.01XA - Contusion of right knee, initial encounter Patient Disposition: Left Against Medical Advice Condition: Stable Instructions: Syncope (DC), P.R.I.C.E. Treatment (ED) Additional Instructions: Your x-ray of your right knee and left hand were negative for any fractures or acute findings. You may wear an Casey wrap her knee brace as needed for comfort. You may wear Casey wrap for a thumb spica splint as needed for comfort to her left hand. Apply ice to the affected area to help with swelling. Twenty minutes on an 20 minutes off. You may take Tylenol as needed for pain. Go to the ER if you have another syncopal episode, headaches, vision changes, bloody stools, or any other concerns. Please follow-up with your PCP in 2-3 days. Patient Language: Belarusian Prescriptions: No Action fluconazole 100 mg tablet estradiol 0.01 % (0.1 mg/gram) cream VAGINAL (DME) Dexcom G6 Sensor Device See Rx Instructions .Route Rx Instructions: As directed 1 sensor every 10 days 1 box = 3 sensors (DME) Dexcom G6 Transmitter Device See Rx Instructions .Route Rx Instructions: As directed Change every 90 days insulin lispro 100 unit/mL insulin pen 1 sliding scale dose subcut USEASDIRECTD Rx Instructions: per patient SS (DME) pen needle, diabetic [Pen Needle] 32 gauge x 5/32 needle See Rx Instructions .Route Rx Instructions: As directed TID insulin glargine [Basaglar KwikPen U-100 Insulin] 100 unit/mL (3 mL) insulin pen 25 unit SUBCUT DAILY calcium acetate(phosphat bind) 667 mg capsule 667 mg PO TID Rx Instructions: with meals tacrolimus 1 mg Capsule 2 mg PO HS mycophenolate sodium [Myfortic] 360 mg Tablet,Delayed Release (Dr/Ec) 360 mg PO Q12H carvedilol 12.5 mg tablet 25 mg PO BID tacrolimus 1 mg capsule 1 mg PO QAM fluticasone propionate [Flonase Allergy Relief] 50 mcg/actuation spray,suspension 1 spray intranasal BID Qty: 16 2RF Rx Instructions: administer into each nostril sertraline 25 mg tablet 25 mg PO DAILY Qty: 90 3RF albuterol sulfate 90 mcg/actuation HFA aerosol inhaler 1 inh inhalation Q4H PRN (Reason: shortness of breath or wheezing) Qty: 18 1RF Follow-up/Referrals: Herman Larson DO [Primary Care Provider] - Time of Disposition: 18:40
== END 2024-10-21 18:43 | disposition left against medical advice (07) ==
PROVIDERS: PCP Internal Medicine
DX: R55 Syncope and collapse (principal); S69.92XA Unspecified injury of left wrist, hand and finger(s), initial encounter; S80.01XA Contusion of right knee, initial encounter; W18.11XA Fall from or off toilet without subsequent striking against object, initial encounter; K74.60 Unspecified cirrhosis of liver; I10 Essential (primary) hypertension; E11.9 Type 2 diabetes mellitus without complications; N80.9 Endometriosis, unspecified; R01.1 Cardiac murmur, unspecified; M81.0 Age-related osteoporosis without current pathological fracture; K21.9 Gastro-esophageal reflux disease without esophagitis; Z79.4 Long term (current) use of insulin
CPT/HCPCS: 73130; 73564; 93005; 99214; G0463

== ENCOUNTER 2024-10-30 12:45 | Outpatient (CLI) | payer MEDICARE, OTHER, SELFPAY ==
--- NOTE | ~2024-10-30 | XR_ITS ---
[XR ribs BI 3V w CXR 2V ] INDICATION: Shortness of breath TECHNIQUE: Frontal projection of the upper ribs, frontal projection of the lower ribs, oblique projec tion of all the ribs, frontal inspiratory chest x-ray for interpretation. FINDINGS: There are no displaced rib fractures identified. There are no soft tissue abnormality see n. The lungs are clear. Osteopenia limits evaluation for subtle nondisplaced fractures. IMPRESSION: 1:No acute displaced rib fractures. Reviewed, dictated and finalized at location A.
== END 2024-10-30 12:46 | disposition home or self-care (01) ==
LOC: MICIMG 12:46
PROVIDERS: PCP Internal Medicine; Visit Provider Internal Medicine Nephrology
DX: R94.31 Abnormal electrocardiogram [ECG] [EKG] (principal)
CPT/HCPCS: 71046; 71110